=== PATIENT | female | born 1935 | race Caucasian/White ===

== ENCOUNTER → 2017-05-12 | Outpatient (CLI) | payer MEDICARE, BC ==
--- NOTE | 2017-05-13 08:32 | MM ---
Reason for exam: screening (asymptomatic). Last mammogram was performed 2 years and 10 months ago. History: Patient is postmenopausal. Family history of breast cancer in sister at age 65. Physical Findings: A clinical breast exam by your physician is recommended on an annual basis and results should be correlated with mammographic findings. MG Screening Mammo w CAD Bilateral CC and MLO view(s) were taken. Prior study comparison: July 21, 2014, bilateral MG screening mammo w CAD. November 06, 2011, bilateral digital screening mammo w/CAD. The breast tissue is heterogeneously dense. This may lower the sensitivity of mammography. Focal asymmetry upper outer right breast 2.4cm from nipple. This finding is changed when compared with previous exams. ASSESSMENT: Incomplete: need additional imaging evaluation, BI-RAD 0 RECOMMENDATION: Special view mammogram of the right breast. If lesion persists on supplemental views, image directed ultrasound is recommended. [facility] will attempt to contact patient to return for supplemental views and ultrasound if indicated.
== END | disposition home or self-care (01) ==
LOC: RADMAMWWP 09:33
PROVIDERS: ATTEND Family Medicine
DX: Z12.31 Encounter for screening mammogram for malignant neoplasm of breast (principal)

== ENCOUNTER → 2017-05-15 | Outpatient (CLI) | payer MEDICARE, BC ==
--- NOTE | 2017-05-15 11:50 | MM ---
Reason for exam: additional evaluation requested from abnormal screening. Last mammogram was performed less than 1 month ago. History: Patient is postmenopausal. Family history of breast cancer in sister at age 65. Physical Findings: Nurse Summary: 1.5cm nodule in the left breast at 2 o'clock (nurse whitney). MG 3D Work Up W/Cad RT CC, MLO, ML, spot compression MLO, and spot compression CC view(s) were taken of the right breast. Prior study comparison: May 12, 2017, bilateral MG screening mammo w CAD. July 21, 2014, bilateral MG screening mammo w CAD. November 06, 2011, bilateral digital screening mammo w/CAD. The breast tissue is heterogeneously dense. This may lower the sensitivity of mammography. Dense tissue are present anteriorly. On spot 3D images no underlying mass or architectural distortion is seen. Precautionary 6 month follow up recommended. Recommend ultrasound for the nurse detected palpable area on the left. These results were verbally communicated with the patient and result sheet given to the patient on 05/15/17. ASSESSMENT: Incomplete: need additional imaging evaluation, BI-RAD 0 RECOMMENDATION: Ultrasound. (targeted to palpable) MTDD
--- NOTE | 2017-05-15 11:52 | USB ---
Reason for exam: additional evaluation requested from abnormal screening. History: Patient is postmenopausal. Family history of breast cancer in sister at age 65. US Breast Workup Limited LT Left breast ultrasound demonstrates no cystic or solid lesion seen greater than 0.50cm. Scanned from 12-3 o'clock with particular attention to the 2 o'clock nurse palpated site. These results were verbally communicated with the patient and result sheet given to the patient on 05/15/17. ASSESSMENT: Probably benign, BI-RAD 3 RECOMMENDATION: Follow-up diagnostic mammogram in 6 months. (right breast)
== END ==
LOC: RADMAMWWP 09:31
PROVIDERS: ATTEND Family Medicine
DX: R92.8 Other abnormal and inconclusive findings on diagnostic imaging of breast (principal)
CPT/HCPCS: 76642; G0206; G0279

== ENCOUNTER → 2019-11-19 | Outpatient (CLI) | payer MEDICARE, BC ==
--- NOTE | 2019-11-22 13:08 | MM ---
Reason for exam: screening (asymptomatic). Last mammogram was performed 2 years and 6 months ago. History: Patient is postmenopausal. Family history of breast cancer in sister at age 65. Physical Findings: A clinical breast exam by your physician is recommended on an annual basis and results should be correlated with mammographic findings. MG Screening Mammo w CAD Bilateral CC and MLO view(s) were taken. Prior study comparison: May 15, 2017, right breast MG 3d work up w/cad RT. May 12, 2017, bilateral MG screening mammo w CAD. The breast tissue is heterogeneously dense. This may lower the sensitivity of mammography. Stable benign calcifications. There is no discrete abnormality. No significant changes when compared with prior studies. ASSESSMENT: Benign, BI-RAD 2 RECOMMENDATION: Routine screening mammogram of both breasts in 1 year.
== END | disposition home or self-care (01) ==
LOC: RADMAMWWP 10:27
PROVIDERS: ATTEND Family Medicine
DX: Z12.31 Encounter for screening mammogram for malignant neoplasm of breast (principal); Z80.3 Family history of malignant neoplasm of breast
CPT/HCPCS: 77067

== ENCOUNTER 2020-02-13 10:28 | Inpatient (IN) | payer MEDICARE, BC ==
[2020-02-13] MEDS ORDERED: SODIUM CHLORIDE 0.9% 500 ML 500 ML IV STA (11:02)
--- NOTE | 2020-02-13 11:08 | ED ---
General Adult HPI - General Chief complaint: Nausea/Vomiting/Diarrhea Stated complaint: Vomiting Time Seen by Provider: 02/13/20 10:29 Source: patient, EMS, RN notes reviewed Mode of arrival: EMS Limitations: no limitations - History of Present Illness Initial comments: 84-year-old female with a past medical history of diabetes, hypertension presents to the emergency department for a chief complaint of near syncopal episode. Patient states she woke up and just did not feel well overall. States she was very sweaty. She did not have any associated chest pain or shortness of breath. Patient thought she needed to have a bowel movement so sat down on the toilet and felt like she was going to pass out. Patient states she then got up and went into her bedroom where she vomited 3-4 times. She did not lose consciousness. Patient's had a stress test about 6 years ago which was normal. She has not had any cardiac evaluation since that time. Patient did not fall. She did not hit her head. she is stating she feels much better at this time. P erasmo has no other complaints at this time including shortness of breath, chest pain, abdominal pain, nausea or vomiting, headache, or visual changes. - Related Data Allergies Allergy/AdvReac Type Severity Reaction Status Date / Time No Known Allergies Allergy Verified 02/13/20 10:36 Review of Systems ROS Statement: Those systems with pertinent positive or pertinent negative responses have been documented in the HPI. ROS Other: All systems not noted in ROS Statement are negative. Past Medical History Past Medical History: Diabetes Mellitus, Hypertension History of Any Multi-Drug Resistant Organisms: None Reported Past Surgical History: Cholecystectomy, Hysterectomy Past Psychological History: No Psychological Hx Reported Smoking Status: Never smoker Past Alcohol Use History: None Reported Past Drug Use History: None Reported General Exam Limitations: no limitations General appearance: alert, in no apparent distress Head exam: Present: atraumatic, normocephalic, normal inspection Eye exam: Present: normal appearance, PERRL, EOMI. Absent: scleral icterus, conjunctival injection, periorbital swelling ENT exam: Present: normal exam, mucous membranes moist Neck exam: Present: normal inspection, full ROM. Absent: tenderness, meningismus, lymphadenopathy Respiratory exam: Present: normal lung sounds bilaterally. Absent: respiratory distress, wheezes, rales, rhonchi, stridor Cardiovascular Exam: Present: regular rate, normal rhythm, normal heart sounds. Absent: systolic murmur, diastolic murmur, rubs, gallop, clicks GI/Abdominal exam: Present: soft, normal bowel sounds. Absent: distended, tenderness, guarding, rebound, rigid Neurological exam: Present: alert, oriented X3, CN II-XII intact Psychiatric exam: Present: normal affect, normal mood Course Vital Signs 02/13/20 02/13/20 02/13/20 10:31 11:00 12:00 Temperature 98.4 F Pulse Rate 87 86 84 Respiratory 18 18 16 Rate Blood Pressure 120/70 140/57 O2 Sat by Pulse 97 98 99 Oximetry 02/13/20 13:00 Temperature Pulse Rate 82 Respiratory 18 Rate Blood Pressure 129/64 O2 Sat by Pulse 100 Oximetry EKG Findings - EKG Comments: EKG Findings:: Sinus rhythm, ventricular rate 83, ME Interval 240, QTC 474 Medical Decision Making - Medical Decision Making X-ray of the chest shows no acute intrathoracic disease. HPI and physical exam as documented. Vitals are stable. CBC CMP unremarkable. There is evidence or hyperglycemia although patient is diabetic. Also some evidence of dehydration, patient was given fluids. Troponin negative. Patient has not had a cardiac workup in several years. Pt will be admitted for cardiology consultation. - Lab Data Result diagrams: 02/13/20 12:01 02/13/20 12:01 Lab Results 02/13/20 02/13/20 02/13/20 Range/Units 11:38 12:01 12:01 WBC 7.7 (3.8-10.6) k/uL RBC 3.73 L (3.80-5.40) m/uL Hgb 11.1 L (11.4-16.0) gm/dL Hct 35.1 (34.0-46.0) % MCV 94.2 (80.0-100.0) fL MCH 29.7 (25.0-35.0) pg MCHC 31.5 (31.0-37.0) g/dL RDW 14.3 (11.5-15.5) % Plt Count 297 (150-450) k/uL Neutrophils % 75 % Lymphocytes % 17 % Monocytes % 5 % Eosinophils % 1 % Basophils % 0 % Neutrophils # 5.8 (1.3-7.7) k/uL Lymphocytes # 1.3 (1.0-4.8) k/uL Monocytes # 0.4 (0-1.0) k/uL Eosinophils # 0.1 (0-0.7) k/uL Basophils # 0.0 (0-0.2) k/uL PT 10.9 (9.0-12.0) sec INR 1.1 (<1.2) APTT 20.8 L (22.0-30.0) sec Sodium (137-145) mmol/L Potassium (3.5-5.1) mmol/L Chloride (98-107) mmol/L Carbon Dioxide (22-30) mmol/L Anion Gap mmol/L BUN (7-17) mg/dL Creatinine (0.52-1.04) mg/dL Est GFR (CKD-EPI)AfAm (>60 ml/min/1.73 sqM) Est GFR (CKD-EPI)NonAf (>60 ml/min/1.73 sqM) Glucose (74-99) mg/dL POC Glucose (mg/dL) 251 H (75-99) mg/dL POC Glu Olericulturist ID Bowling, Dinah Calcium (8.4-10.2) mg/dL Magnesium (1.6-2.3) mg/dL Total Bilirubin (0.2-1.3) mg/dL AST (14-36) U/L ALT (4-34) U/L Alkaline Phosphatase (38-126) U/L Troponin I (0.000-0.034) ng/mL Total Protein (6.3-8.2) g/dL Albumin (3.5-5.0) g/dL 02/13/20 02/13/20 Range/Units 12:01 12:01 WBC (3.8-10.6) k/uL RBC (3.80-5.40) m/uL Hgb (11.4-16.0) gm/dL Hct (34.0-46.0) % MCV (80.0-100.0) fL MCH (25.0-35.0) pg MCHC (31.0-37.0) g/dL RDW (11.5-15.5) % Plt Count (150-450) k/uL Neutrophils % % Lymphocytes % % Monocytes % % Eosinophils % % Basophils % % Neutrophils # (1.3-7.7) k/uL Lymphocytes # (1.0-4.8) k/uL Monocytes # (0-1.0) k/uL Eosinophils # (0-0.7) k/uL Basophils # (0-0.2) k/uL PT (9.0-12.0) sec INR (<1.2) APTT (22.0-30.0) sec Sodium 136 L (137-145) mmol/L Potassium 4.8 (3.5-5.1) mmol/L Chloride 100 (98-107) mmol/L Carbon Dioxide 26 (22-30) mmol/L Anion Gap 10 mmol/L BUN 47 H (7-17) mg/dL Creatinine 0.99 (0.52-1.04) mg/dL Est GFR (CKD-EPI)AfAm 61 (>60 ml/min/1.73 sqM) Est GFR (CKD-EPI)NonAf 53 (>60 ml/min/1.73 sqM) Glucose 228 H (74-99) mg/dL POC Glucose (mg/dL) (75-99) mg/dL POC Glu Olericulturist ID Calcium 9.8 (8.4-10.2) mg/dL Magnesium 1.8 (1.6-2.3) mg/dL Total Bilirubin 0.2 (0.2-1.3) mg/dL AST 19 (14-36) U/L ALT 16 (4-34) U/L Alkaline Phosphatase 47 (38-126) U/L Troponin I <0.012 (0.000-0.034) ng/mL Total Protein 6.7 (6.3-8.2) g/dL Albumin 4.2 (3.5-5.0) g/dL Disposition Clinical Impression: Near syncope, Hyperglycemia Disposition: ADMITTED IP TO THIS HOSP Condition: Fair Is patient prescribed a controlled substance at d/c from ED?: No Referrals: Janelle Morales DO [Primary Care Provider] - 1-2 days Time of Disposition: 13:30
[2020-02-13 11:39] LABS: Glucose,Whole Blood 251 mg/dL (75-99)
--- NOTE | 2020-02-13 12:19 | XR ---
EXAMINATION TYPE: XR chest 2V DATE OF EXAM: 02/13/2020 HISTORY: syncope. REFERENCE: NONE. FINDINGS: The lungs are clear. Pleural space are clear. The heart is not enlarged. IMPRESSION: NO ACTIVE INTRATHORACIC DISEASE.
[2020-02-13 12:21] LABS: Basophils % (A) 0 %; Eosinophils # (A) 0.1 k/uL (0-0.7); Eosinophils % (A) 1 %; HCT 35.1 % (34.0-46.0); HGB 11.1 gm/dL (11.4-16.0); Lymphocytes # (A) 1.3 k/uL (1.0-4.8); Lymphocytes % (A) 17 %; MCH 29.7 pg (25.0-35.0); MCHC 31.5 g/dL (31.0-37.0); MCV 94.2 fL (80.0-100.0); Monocytes # (A) 0.4 k/uL (0-1.0); Monocytes % (A) 5 %; Neutrophils # (A) 5.8 k/uL (1.3-7.7); Neutrophils % (A) 75 %; Platelet Count 297 k/uL (150-450); RBC 3.73 m/uL (3.80-5.40); RDW 14.3 % (11.5-15.5); WBC 7.7 k/uL (3.8-10.6)
[2020-02-13 12:31] LABS: Albumin 4.2 g/dL (3.5-5.0); Calcium 9.8 mg/dL (8.4-10.2); Magnesium 1.8 mg/dL (1.6-2.3); Potassium 4.8 mmol/L (3.5-5.1); Total Bilirubin 0.2 mg/dL (0.2-1.3); Total Protein 6.7 g/dL (6.3-8.2)
[2020-02-13 12:41] LABS: INR 1.1 (<1.2); Prothrombin Time 10.9 sec (9.0-12.0)
[2020-02-13 12:45] LABS: Partial Thromboplastin Time 20.8 sec (22.0-30.0)
[2020-02-13] MEDS ORDERED: NALOXONE 0.4 MG/ML 1 ML VIAL IV PRN (13:24)
--- NOTE | 2020-02-13 18:54 | P.HPIM ---
History of Present Illness H&P Date: 02/13/20 Chief Complaint: Nausea/vomiting/diarrhea 84-year-old female with a past medical history of diabetes, hypertension presents to the emergency department for a chief complaint of near syncopal episode. Patient states she woke up and just did not feel well overall. States she was very sweaty. She did not have any associated chest pain or shortness of breath. Patient thought she needed to have a bowel movement so sat down on the toilet and felt like she was going to pass out. Patient states she then got up and went into her bedroom where she vomited 3-4 times. She did not lose consciousness. Patient's had a stress test about 6 years ago which was normal. She has not had any cardiac evaluation since that time. Patient did not fall. She did not hit her head. she is stating she feels much better at this time. Patient has no other complaints at this time including shortness of breath, chest pain, abdominal pain, nausea or vomiting, headache, or visual changes. Workup in ED was significant for mild renal injury and hyperglycemia; patient was treated with IV fluid hydration and is admitted to the hospital for further workup of syncope Review of Systems REVIEW OF SYSTEMS: CONSTITUTIONAL: No fever, no malaise, no fatigue. HEENT: No recent visual problems or hearing problems. Denied any sore throat. CARDIOVASCULAR: No chest pain, orthopnea, PND, no palpitations, no syncope. PULMONARY: No shortness of breath, no cough, no hemoptysis. GASTROINTESTINAL: No diarrhea, no nausea, no vomiting, no abdominal pain. NEUROLOGICAL: No headaches, no weakness, no numbness. HEMATOLOGICAL: Denies any bleeding or petechiae. GENITOURINARY: Denies any burning micturition, frequency, or urgency. MUSCULOSKELETAL/RHEUMATOLOGICAL: Denies any joint pain, swelling, or any muscle pain. ENDOCRINE: Denies any polyuria or polydipsia. The rest of the 14-point review of systems is negative. Past Medical History Past Medical History: Diabetes Mellitus, Hypertension History of Any Multi-Drug Resistant Organisms: None Reported Past Surgical History: Cholecystectomy, Hysterectomy Past Psychological History: No Psychological Hx Reported Smoking Status: Never smoker Past Alcohol Use History: None Reported Past Drug Use History: None Reported - Past Family History Sister(s) Family Medical History: Cancer Medications and Allergies Home Medications Medication Instructions Recorded Confirmed Type Aspirin EC [Ecotrin Low Dose] 81 mg PO DAILY 02/13/20 02/13/20 History Cholecalciferol [Vitamin D3 (25 1,000 unit PO DAILY 02/13/20 02/13/20 History Mcg = 1000 Iu)] Cinnamon Bark [Cinnamon] 1,000 mg PO DAILY 02/13/20 02/13/20 History Cranberry Fruit Concentrate [Azo 250 mg PO DAILY@1200 02/13/20 02/13/20 History Cranberry] Cyanocobalamin (Vitamin B-12) 1,000 mcg PO DAILY 02/13/20 02/13/20 History [Vitamin B-12] Glimepiride [Amaryl] 4 mg PO BID 02/13/20 02/13/20 History Lisinopril-Hctz 10-12.5 mg 1 tab PO DAILY 02/13/20 02/13/20 History [Zestoretic 10-12.5] [place]-3 Fatty Acids/Fish Oil [Fish 1 cap PO DAILY 02/13/20 02/13/20 History Oil 1,000 mg Softgel] Pioglitazone [Actos] 45 mg PO DAILY@1200 02/13/20 02/13/20 History Simvastatin 20 mg PO DAILY 02/13/20 02/13/20 History metFORMIN HCL 1,000 mg PO BID 02/13/20 02/13/20 History Allergies Allergy/AdvReac Type Severity Reaction Status Date / Time No Known Allergies Allergy Verified 02/13/20 14:51 Physical Exam Vitals: Vital Signs Temp Pulse Resp BP Pulse Ox 02/13/20 13:00 82 18 129/64 100 02/13/20 12:00 84 16 140/57 99 02/13/20 11:00 86 18 120/70 98 02/13/20 10:31 98.4 F 87 18 97 Intake and Output 02/13/20 02/13/20 02/13/20 06:59 14:59 22:59 Other: Weight 93.894 kg General appearance: alert, in no apparent distress Head exam: Present: atraumatic, normocephalic, normal inspection Eye exam: Present: normal appearance, PERRL, EOMI. Absent: scleral icterus, conjunctival injection, periorbital swelling ENT exam: Present: normal exam, mucous membranes moist Neck exam: Present: normal inspection, full ROM. Absent: tenderness, meningismus, lymphadenopathy Respiratory exam: Present: normal lung sounds bilaterally. Absent: respiratory distress, wheezes, rales, rhonchi, stridor Cardiovascular Exam: Present: regular rate, normal rhythm, normal heart sounds. Absent: systolic murmur, diastolic murmur, rubs, gallop, clicks GI/Abdominal exam: Present: soft, normal bowel sounds. Absent: distended, tenderness, guarding, rebound, rigid Neurological exam: Present: alert, oriented X3, CN II-XII intact Psychiatric exam: Present: normal affect, normal mood Results CBC & Chem 7: 02/13/20 12:01 02/13/20 12:01 Labs: Abnormal Lab Results - Last 24 Hours (Table) 02/13/20 02/13/20 02/13/20 Range/Units 11:38 12:01 12:01 RBC 3.73 L (3.80-5.40) m/uL Hgb 11.1 L (11.4-16.0) gm/dL APTT 20.8 L (22.0-30.0) sec Sodium (137-145) mmol/L BUN (7-17) mg/dL Glucose (74-99) mg/dL POC Glucose (mg/dL) 251 H (75-99) mg/dL 02/13/20 Range/Units 12:01 RBC (3.80-5.40) m/uL Hgb (11.4-16.0) gm/dL APTT (22.0-30.0) sec Sodium 136 L (137-145) mmol/L BUN 47 H (7-17) mg/dL Glucose 228 H (74-99) mg/dL POC Glucose (mg/dL) (75-99) mg/dL Assessment and Plan Assessment: 1. Near syncope - We will monitor EKG and trend troponin every 43; consult cardiology for further recommendations on syncope workup 2. Mild renal injury/dehydration; slow IV fluid hydration with normal saline at a rate of 75 mL an hour; we will monitor renal function and electrolytes and make adjustments as needed 3. Intractable nausea vomiting and diarrhea/ suspected covert 19 infection; patient remains in droplet and contact isolation; symptomatic treatment of nausea and vomiting; slow IV fluid hydration with normal saline; we will start patient on clear liquid diet and advance as tolerated 4. Hyperglycemia/uncontrolled diabetes mellitus; patient takes Amaryl, Actos and metformin at home; we will hold off on oral hypoglycemic agents; we will monitor Accu-Cheks every before meals and at bedtime with insulin sliding scale 5. Hypertension; continue with home dose of lisinopril/hydrochlorothiazide; we will monitor renal function closely and hold medication if renal function worsens 6. Hyperlipidemia; simvastatin 40 mg by mouth daily at bedtime DVT prophylaxis; SCDs/subcu heparin CODE STATUS; full code
[2020-02-13 21:04] LABS: Glucose,Whole Blood 150 mg/dL (75-99)
[2020-02-14] MEDS: INSULIN ASPART (NovoLOG) 100 UNIT/ML VIAL SQ SCH ×5 (01:14→20:45)
[2020-02-14] MEDS: SODIUM CHLORIDE 0.9% 1,000 ML IV SCH ×3 (02:19→23:23)
[2020-02-14 06:44] LABS: Glucose,Whole Blood 170 mg/dL (75-99)
[2020-02-14] MEDS: ATORVASTATIN 20 MG TAB PO SCH (08:37)
[2020-02-14] MEDS: ASPIRIN 81 MG PO SCH (08:37)
[2020-02-14] MEDS: LISINOPRIL-HCTZ 10-12.5 MG 1 EACH TAB PO SCH (08:39)
[2020-02-14 08:51] LABS: Calcium 9.2 mg/dL (8.4-10.2); Potassium 4.3 mmol/L (3.5-5.1)
[2020-02-14 08:53] LABS: Basophils % (A) 1 %; Eosinophils # (A) 0.1 k/uL (0-0.7); Eosinophils % (A) 2 %; HCT 28.5 % (34.0-46.0); Hypochromasia Slight; Lymphocytes % (A) 33 %; MCH 29.3 pg (25.0-35.0); MCV 94.5 fL (80.0-100.0); Mean Platelet Volume 7.6; Monocytes # (A) 0.7 k/uL (0-1.0); Monocytes % (A) 11 %; Neutrophils # (A) 3.1 k/uL (1.3-7.7); Neutrophils % (A) 51 %; Platelet Count 262 k/uL (150-450); RBC 3.01 m/uL (3.80-5.40); RDW 14.1 % (11.5-15.5); WBC 6.1 k/uL (3.8-10.6)
[2020-02-14 08:59] LABS: HGB 8.8 gm/dL (11.4-16.0)
--- NOTE | 2020-02-14 09:17 | P.CRDCN ---
History of Present Illness History of present illness: HISTORY OF PRESENTING ILLNESS This is a pleasant 84-year-old female past medical history significant for hypertension and diabetes mellitus. She denies prior history of coronary a rtery disease and does not follow regularly with long term care administrator. We have been asked to see in consultation for near syncope. She states she woke up in the night and felt she had to use the restroom. She got up and walked to the bathroom and sat on the toilet and attempted to have a bowel movement. She then started feeling acutely lightheaded, diaphoretic and vomited. She did not pass out or have loss of consciousness. She had no chest pain, shortness of breath or palpitations throughout the course of this episode. EKG on arrival revealed sinus mechanism, first-degree AV block, left anterior fascicular block and right bundle branch block. Telemetry tracings reviewed extensively reveal evidence of second-degree Wenckebach phenomenon. This occurred around 2 AM while she was sleeping. She was asymptomatic at the time. Chest x-ray is negative for an acute cardiopulmonary process. Laboratory data reviewed, WBC 6.1, hemoglobin 8.8 this morning down from 11.1 yesterday, platelets 262, sodium 137, potassium 4.3, creatinine 0.95, magnesium 1.8, cardiac enzymes negative 3. Current daily cardiac medications include aspirin 81 mg daily, simvastatin 20 mg daily and lisinopril 10/12.5 mg daily. According to the patient she underwent a stress test at her primary care physician's office approximately 6 years ago that was unremarkable. REVIEW OF SYSTEMS At the time of my exam: CONSTITUTIONAL: Denies fever or chills. CARDIOVASCULAR: Denies chest pain, shortness of breath, orthopnea, PND or palpitations. RESPIRATORY: Denies cough. GASTROINTESTINAL: Denies abdominal pain, diarrhea, constipation, nausea or vomiting. MUSCULOSKELETAL: Denies myalgias. NEUROLOGIC: Denies numbness, tingling or weakness. ENDOCRINE: Denies fatigue, weight change, polydipsia or polyurina. GENITOURINARY: Denies burning, hematuria or urgency with micturation. HEMATOLOGIC: Denies history of anemia or bleeding. PHYSICAL EXAMINATION Blood pressure 106/67 heart rate 72 afebrile and maintaining oxygen saturation on room air. CONSTITUTIONAL: No apparent distress. HEENT: Head is normocephalic. Pupils are equal, round. Sclerae anicteric. Mucous membranes of the mouth are moist. No JVD. No carotid bruit. CHEST EXAMINATION: Lungs are clear to auscultation. No chest wall tenderness is noted on palpation or with deep breathing. HEART EXAMINATION: Regular rate and rhythm. S1, S2 heard. No murmurs, gallops or rub. ABDOMEN: Soft, nontender. Positive bowel sounds. EXTREMITIES: 2+ peripheral pulses, no lower extremity edema and no calf tenderness. NEUROLOGIC EXAMINATION: Patient is awake, alert and oriented x3. 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 Discussed with the nurse having her get up and ambulate this morning while telemetry ongoing. We will review those strips. Obtain 2D echocardiogram and doppler study to assess cardiac structure and function. Check TSH and free T4. Avoid all rate lowering agents. Check stool for occult blood given drop in hemoglobin. Thank you kindly for this consultation. Nurse Practitioner note has been reviewed, I agree with a documented findings and plan of care. Patient was seen and examined. Past Medical History Past Medical History: Diabetes Mellitus, Hypertension History of Any Multi-Drug Resistant Organisms: None Reported Past Surgical History: Cholecystectomy, Hysterectomy Past Anesthesia/Blood Transfusion Reactions: No Reported Reaction Past Psychological History: No Psychological Hx Reported Smoking Status: Never smoker Past Alcohol Use History: None Reported Past Drug Use History: None Reported - Past Family History Sister(s) Family Medical History: Cancer Medications and Allergies Home Medications Medication Instructions Recorded Confirmed Type Aspirin EC [Ecotrin Low Dose] 81 mg PO DAILY 02/13/20 02/13/20 History Biotin 5 mg PO DAILY 02/13/20 02/13/20 History Cholecalciferol [Vitamin D3 (25 1,000 unit PO DAILY 02/13/20 02/13/20 History Mcg = 1000 Iu)] Cinnamon Bark [Cinnamon] 1,000 mg PO DAILY 02/13/20 02/13/20 History Cranberry Fruit Concentrate [Azo 250 mg PO DAILY@1200 02/13/20 02/13/20 History Cranberry] Cyanocobalamin (Vitamin B-12) 1,000 mcg PO DAILY 02/13/20 02/13/20 History [Vitamin B-12] Glimepiride [Amaryl] 4 mg PO BID 02/13/20 02/13/20 History Lisinopril-Hctz 10-12.5 mg 1 tab PO DAILY 02/13/20 02/13/20 History [Zestoretic 10-12.5] Magnesium 250 mg PO DAILY 02/13/20 02/13/20 History Msm 1000mg 1 cap PO DAILY 02/13/20 02/13/20 History [place]-3 Fatty Acids/Fish Oil [Fish 1 cap PO DAILY 02/13/20 02/13/20 History Oil 1,000 mg Softgel] Pioglitazone [Actos] 45 mg PO DAILY@1200 02/13/20 02/13/20 History Simvastatin 20 mg PO DAILY 02/13/20 02/13/20 History Ubidecarenone [Co Q-10] 400 mg PO DAILY 02/13/20 02/13/20 History metFORMIN HCL 1,000 mg PO BID 02/13/20 02/13/20 History Allergies Allergy/AdvReac Type Severity Reaction Status Date / Time No Known Allergies Allergy Verified 02/13/20 14:51 Physical Exam Vitals: Vital Signs Temp Pulse Pulse Resp BP BP Pulse Ox 02/14/20 07:00 98.5 F 72 17 106/67 96 02/14/20 02:20 98.6 F 72 110/64 97 02/13/20 19:00 98.5 F 82 18 120/73 96 02/13/20 18:27 14 02/13/20 18:26 78 14 138/59 96 02/13/20 16:37 79 18 115/59 97 02/13/20 13:00 82 18 129/64 100 02/13/20 12:00 84 16 140/57 99 02/13/20 11:00 86 18 120/70 98 02/13/20 10:31 98.4 F 87 18 97 Intake and Output 02/13/20 02/14/20 02/14/20 22:59 06:59 14:59 Intake Total 300 490 Balance 300 490 Intake: Oral 300 490 Other: # Voids 2 2 Weight 93.894 kg Results 02/14/20 07:28 02/14/20 07:28 Cardiac Enzymes 02/13/20 02/13/20 02/13/20 Range/Units 12:01 12:01 18:09 AST 19 (14-36) U/L Troponin I <0.012 <0.012 (0.000-0.034) ng/mL 02/13/20 Range/Units 23:15 AST (14-36) U/L Troponin I <0.012 (0.000-0.034) ng/mL Coagulation 02/13/20 Range/Units 12:01 PT 10.9 (9.0-12.0) sec APTT 20.8 L (22.0-30.0) sec CBC 02/13/20 Range/Units 12:01 WBC 7.7 (3.8-10.6) k/uL RBC 3.73 L (3.80-5.40) m/uL Hgb 11.1 L (11.4-16.0) gm/dL Hct 35.1 (34.0-46.0) % Plt Count 297 (150-450) k/uL Comprehensive Metabolic Panel 02/13/20 Range/Units 12:01 Sodium 136 L (137-145) mmol/L Potassium 4.8 (3.5-5.1) mmol/L Chloride 100 (98-107) mmol/L Carbon Dioxide 26 (22-30) mmol/L BUN 47 H (7-17) mg/dL Creatinine 0.99 (0.52-1.04) mg/dL Glucose 228 H (74-99) mg/dL Calcium 9.8 (8.4-10.2) mg/dL AST 19 (14-36) U/L ALT 16 (4-34) U/L Alkaline Phosphatase 47 (38-126) U/L Total Protein 6.7 (6.3-8.2) g/dL Albumin 4.2 (3.5-5.0) g/dL Current Medications Generic Name Dose Route Start Last Admin Trade Name Freq PRN Reason Stop Dose Admin Aspirin 81 mg 02/14/20 09:00 02/14/20 08:37 Aspirin PO 81 mg DAILY NADEEM Administration Atorvastatin Calcium 20 mg 02/14/20 09:00 02/14/20 08:37 Lipitor PO 20 mg DAILY NADEEM Administration Lisinopril/HCTZ 1 each 02/14/20 09:00 02/14/20 08:39 Zestoretic 10-12.5 PO 1 each DAILY NADEEM Administration Sodium Chloride 1,000 mls @ 20 mls/hr 02/13/20 13:30 02/14/20 03:26 Saline 0.9% IV Not Given .Q24H NADEEM Sodium Chloride 1,000 mls @ 75 mls/hr 02/13/20 19:00 02/14/20 02:19 Saline 0.9% IV 75 mls/hr .[id number] NADEEM Administration Insulin Aspart 0 unit 02/13/20 21:00 02/14/20 08:37 Novolog SQ 02/20/20 21:01 2 unit ACHS NADEEM Administration Protocol Naloxone HCl 0.2 mg 02/13/20 13:24 Narcan IV Q2M PRN Opioid Reversal Intake and Output 02/13/20 02/14/20 02/14/20 22:59 06:59 14:59 Intake Total 300 490 Balance 300 490 Intake: Oral 300 490 Other: # Voids 2 2 Weight 93.894 kg 02/13/20 12:01 02/13/20 12:01
[2020-02-14 11:22] LABS: Glucose,Whole Blood 193 mg/dL (75-99)
--- NOTE | 2020-02-14 12:00 | ECHOF ---
Referral Reason: MEASUREMENTS -------- HEIGHT: 165.1 cm WEIGHT: 93.9 kg BP: 106/67 RVIDd: 3.0 cm (< 3.3) IVSd: 1.6 cm (0.6 - 1.1) LVIDd: 3.8 cm (3.9 - 5.3) LVPWd: 1.4 cm (0.6 - 1.1) IVSs: 1.8 cm LVIDs: 2.5 cm LVPWs: 1.8 cm Ao Diam: 3.0 cm (2.0 - 3.7) AV Cusp: 2.1 cm (1.5 - 2.6) LA Diam: 2.2 cm (2.7 - 3.8) MV EXCURSION: 9.718 mm (> 18.000) MV EF SLOPE: 40 mm/s (70 - 150) EPSS: 0.7 cm MV E Jaskaran: 0.64 m/s MV DecT: 294 ms MV A Jaskaran: 0.30 m/s MV E/A Ratio: 2.12 RAP: 5.00 mmHg RVSP: 8.86 mmHg FINDINGS -------- Sinus rhythm. This was a technically difficult study with suboptimal views. The left ventricular size is normal. There is moderate concentric left ventricular hypertrophy. O verall left ventricular systolic function is normal with, an EF between 55 - 60 %. The right ventricle is normal in size. The left atrial size is normal. The right atrial size is normal. 5.0mg of Lumason was utilized for enhancement of images IAS not well Visualized. The aortic valve is trileaflet and appears structurally normal. The mitral valve is normal. There is trace mitral regurgitation. The tricuspid valve appears structurally normal. Trace tricuspid regurgitation present. Right deidre tricular systolic pressure is normal at < 35 mmHg. The pulmonic valve was not well visualized. The aortic root size is normal. IVC Not well visulized. There is no pericardial effusion. CONCLUSIONS -------- 1. Sinus rhythm. 2. This was a technically difficult study with suboptimal views. 3. The left ventricular size is normal. 4. There is moderate concentric left ventricular hypertrophy. 5. Overall left ventricular systolic function is normal with, an EF between 55 - 60 %. 6. The right ventricle is normal in size. 7. The left atrial size is normal. 8. The right atrial size is normal. 9. 5.0mg of Lumason was utilized for enhancement of images 10. IAS not well Visualized. 11. The aortic valve is trileaflet and appears structurally normal. 12. The mitral valve is normal. 13. There is trace mitral regurgitation. 14. The tricuspid valve appears structurally normal. 15. Trace tricuspid regurgitation present. 16. Right ventricular systolic pressure is normal at < 35 mmHg. 17. The pulmonic valve was not well visualized. 18. The aortic root size is normal. 19. IVC Not well visulized. 20. There is no pericardial effusion. [employer]WORK INSTALLER: Ariane Vitale RDCS
[2020-02-14] MEDS: PANTOPRAZOLE 40 MG TABLET PO SCH (12:54)
--- NOTE | 2020-02-14 15:21 | P.PN ---
Subjective Progress Note Date: 02/14/20 Visit 84-year-old female admitted with near syncope, nausea and vomiting 1, dark emesis, hyperglycemia and multiple other medical issues. Telemetry suggestive of possible pulses, possible wenkybach. Evaluated by cardiology. Echo pending. Patient has been instructed to increase ambulation with further monitoring with exertion. Thyroid panel pending. Hemoglobin down to 8.8, 11.1 on admission. GI consulted. Denies chest pain, palpitations or shortness of breath. Denies lightheadedness, dizziness or focal deficits. Objective - Vital Signs Vital signs: Vital Signs Temp 98.3 F 02/14/20 14:15 Pulse 70 02/14/20 14:15 Resp 16 02/14/20 14:15 BP 96/57 02/14/20 14:15 Pulse Ox 94 L 02/14/20 14:15 Intake & Output 02/13/20 02/14/20 02/14/20 18:59 06:59 18:59 Intake Total 300 1440 Balance 300 1440 Weight 93.894 kg Intake: Intake, IV Titration 600 Amount Sodium Chloride 0.9% 1, 600 000 ml @ 75 mls/hr IV . [id number] NADEEM Rx#:[id number] Oral 300 840 Other: # Voids 2 2 # Bowel Movements 2 - Exam PHYSICAL EXAM: VITAL SIGNS: As above GENERAL: Sitting up in bed, no acute distress HEENT: Conjunctivae normal. eyes normal. NECK: No JVD. No thyroid enlargement. No LNs CARDIOVASCULAR: S1, S2 regular. No murmur RESPIRATION: Breath sounds diminished in the bases. No rhonchi or crackles. No bronchial breathing. ABDOMEN: Soft, nontender . No guarding. no masses palpable. Bowel sounds heard. LEGS: No edema. no swelling PSYCHIATRY: Alert and oriented X3, mood and affect normal. NERVOUS SYSTEM: Cranial N 2-12 grossly normal. Moves all 4 limbs. No focal deficits. Strength and sensation grossly intact. Skin: no rash - Labs CBC & Chem 7: 02/14/20 07:28 02/14/20 07:28 Labs: Abnormal Lab Results - Last 24 Hours (Table) 02/13/20 02/14/20 02/14/20 Range/Units 21:03 06:42 07:28 RBC 3.01 L (3.80-5.40) m/uL Hgb 8.8 L D (11.4-16.0) gm/dL Hct 28.5 L (34.0-46.0) % BUN (7-17) mg/dL Glucose (74-99) mg/dL POC Glucose (mg/dL) 150 H 170 H (75-99) mg/dL 02/14/20 02/14/20 Range/Units 07:28 11:21 RBC (3.80-5.40) m/uL Hgb (11.4-16.0) gm/dL Hct (34.0-46.0) % BUN 38 H (7-17) mg/dL Glucose 151 H (74-99) mg/dL POC Glucose (mg/dL) 193 H (75-99) mg/dL Assessment and Plan Assessment: Near-syncope, suspect vasovagal, plus patient has been under significant stress as her sister Friday from breast cancer. Pauses, second degree AV block;Wenkebach Possible GI bleed, reports dark emesis , possible coffee ground. Anemia, possibly acute Diabetes mellitus Hypertension Obesity, BMI 34.4 Family history of cardiac disease, both mother and brother from heart disease. Plan: Continue on current medication regime ,monitoring and symptomatic treatment. Maintain PPI, GI consulted with recommendations pending. Close monitoring of hemoglobin with repeat labs ordered for a.m. Patient has been instructed to increase ambulation with further cardiac monitoring. Echo pending. Discharge planning in progress for tomorrow. The impression and plan of care has been dictated as directed. : I performed a history and examination of this patient, discussed the same with the dictator. I agree with the dictator's note ,documented as a scribe. Any additional findings or plans will be noted.
[2020-02-14 16:33] LABS: Glucose,Whole Blood 165 mg/dL (75-99)
[2020-02-14 20:20] LABS: Glucose,Whole Blood 182 mg/dL (75-99)
[2020-02-15 07:27] LABS: Basophils % (A) 1 %; Eosinophils # (A) 0.2 k/uL (0-0.7); Eosinophils % (A) 3 %; HGB 8.5 gm/dL (11.4-16.0); Lymphocytes # (A) 1.6 k/uL (1.0-4.8); Lymphocytes % (A) 35 %; MCH 29.4 pg (25.0-35.0); MCHC 31.6 g/dL (31.0-37.0); MCV 92.9 fL (80.0-100.0); Monocytes # (A) 0.3 k/uL (0-1.0); Monocytes % (A) 6 %; Neutrophils # (A) 2.5 k/uL (1.3-7.7); Neutrophils % (A) 53 %; Platelet Count 260 k/uL (150-450); RDW 14.2 % (11.5-15.5); WBC 4.7 k/uL (3.8-10.6)
[2020-02-15 07:53] LABS: Calcium 9.4 mg/dL (8.4-10.2); Potassium 4.2 mmol/L (3.5-5.1)
[2020-02-15 07:59] LABS: Glucose,Whole Blood 212 mg/dL (75-99)
[2020-02-15] MEDS: SODIUM CHLORIDE 0.9% 1,000 ML IV SCH ×4 (08:21→11:30)
[2020-02-15] MEDS: INSULIN ASPART (NovoLOG) 100 UNIT/ML VIAL SQ SCH ×4 (08:31→20:17)
[2020-02-15] MEDS: PANTOPRAZOLE 40 MG TABLET PO SCH (08:32)
[2020-02-15] MEDS: ATORVASTATIN 20 MG TAB PO SCH (08:33)
[2020-02-15] MEDS: LISINOPRIL-HCTZ 10-12.5 MG 1 EACH TAB PO SCH (08:33)
[2020-02-15] MEDS: ASPIRIN 81 MG PO SCH (08:33)
--- NOTE | 2020-02-15 09:29 | P.PN ---
Subjective HISTORY OF PRESENTING ILLNESS This is a pleasant 84-year-old female past medical history significant for hypertension and diabetes mellitus. She denies prior history of coronary artery disease and does not follow regularly with contact lens assistant. She is seen and examined sitting up at the edge of the bed in no acute distress. She denies any further episodes of dizziness or vomiting. Telemetry tracings indicate her rate did improve with ambulation yesterday afternoon. Blood pressure 127/59 heart rate 72 afebrile and maintaining oxygen saturation on room air. Laboratory data reviewed, WBC 4.7, hemoglobin 8.5, platelets 260, sodium 137, potassium 4.2, creatinine 0.97. 2-D echocardiogram reviewed revealed preserved LV systolic function with ejection fraction 55-60%. PHYSICAL EXAMINATION CONSTITUTIONAL: No apparent distress. HEENT: Head is normocephalic. Pupils are equal, round. Sclerae anicteric. Mucous membranes of the mouth are moist. No JVD. No carotid bruit. CHEST EXAMINATION: Lungs are clear to auscultation. No chest wall tenderness is noted on palpation or with deep breathing. HEART EXAMINATION: Regular rate and rhythm. S1, S2 heard. No murmurs, gallops or rub. EXTREMITIES: 2+ peripheral pulses, no lower extremity edema and no calf tenderness. 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 Avoid all rate lowering medications. Recommend outpatient 24-hr holter monitor from the office and then follow up visit with Dr. Nelson in 1-week. Nurse Practitioner note has been reviewed, I agree with a documented findings and plan of care. Patient was seen and examined. Objective - Vital Signs Vital signs: Vital Signs Temp 98.1 F 02/15/20 07:00 Pulse 72 02/15/20 07:00 Resp 16 02/15/20 07:00 BP 127/59 02/15/20 07:00 Pulse Ox 95 02/15/20 07:00 Intake & Output 02/14/20 02/15/20 02/15/20 18:59 06:59 18:59 Intake Total 1900 0 Balance 1900 0 Intake: Intake, IV Titration 600 Amount Sodium Chloride 0.9% 1, 600 000 ml @ 75 mls/hr IV . [id number] NADEEM Rx#:[id number] Oral 1300 0 Other: # Voids 2 2 # Bowel Movements 2 - Labs CBC & Chem 7: 02/15/20 07:07 02/15/20 07:07 Labs: Abnormal Lab Results - Last 24 Hours (Table) 02/14/20 02/14/20 02/14/20 Range/Units 07:28 11:21 16:32 RBC 3.01 L (3.80-5.40) m/uL Hgb 8.8 L D (11.4-16.0) gm/dL Hct 28.5 L (34.0-46.0) % BUN (7-17) mg/dL Glucose (74-99) mg/dL POC Glucose (mg/dL) 193 H 165 H (75-99) mg/dL 02/14/20 02/15/20 02/15/20 Range/Units 20:17 07:07 07:07 RBC 2.90 L (3.80-5.40) m/uL Hgb 8.5 L (11.4-16.0) gm/dL Hct 27.0 L (34.0-46.0) % BUN 23 H (7-17) mg/dL Glucose 186 H (74-99) mg/dL POC Glucose (mg/dL) 182 H (75-99) mg/dL 02/15/20 Range/Units 07:27 RBC (3.80-5.40) m/uL Hgb (11.4-16.0) gm/dL Hct (34.0-46.0) % BUN (7-17) mg/dL Glucose (74-99) mg/dL POC Glucose (mg/dL) 212 H (75-99) mg/dL
[2020-02-15 11:46] LABS: Glucose,Whole Blood 241 mg/dL (75-99)
[2020-02-15 15:09] LABS: Reticulocyte % 2.1 % (0.5-2.0)
--- NOTE | 2020-02-15 15:53 | P.PN ---
Subjective Progress Note Date: 02/15/20 Visit 84-year-old female admitted with near syncope, nausea and vomiting 1, dark emesis, hyperglycemia and multiple other medical issues. Telemetry suggestive of possible pulses, possible wenkybach. Evaluated by cardiology. Echo pending. Patient has been instructed to increase ambulation with further monitoring with exertion. Thyroid panel pending. Hemoglobin down to 8.8, 11.1 on admission. GI consulted. Denies chest pain, palpitations or shortness of breath. Denies lightheadedness, dizziness or focal deficits. 02/15/2020 no further nausea vomiting or diarrhea. Denies chest pain, palpitat ions or shortness of breath. Denies lightheadedness, dizziness or focal deficits. Hemoglobin down to 8.5. Evaluated by GI, scheduled for EGD and colonoscopy tomorrow. 2-D Echo reporting preserved LV function with EF 55-60%. Objective - Vital Signs Vital signs: Vital Signs Temp 98.3 F 02/15/20 14:48 Pulse 65 02/15/20 14:48 Resp 18 02/15/20 14:48 BP 121/60 02/15/20 14:48 Pulse Ox 98 02/15/20 14:48 Intake & Output 02/14/20 02/15/20 02/15/20 18:59 06:59 18:59 Intake Total 1900 0 Balance 1900 0 Intake: Intake, IV Titration 600 Amount Sodium Chloride 0.9% 1, 600 000 ml @ 75 mls/hr IV . [id number] NADEEM Rx#:[id number] Oral 1300 0 Other: # Voids 2 2 1 # Bowel Movements 2 - Exam PHYSICAL EXAM: VITAL SIGNS: As above GENERAL: Sitting up at side of bed, no acute distress HEENT: Conjunctivae normal. eyes normal. NECK: No JVD. No thyroid enlargement. No LNs CARDIOVASCULAR: S1, S2 regular. No murmur RESPIRATION: Breath sounds diminished in the bases. No rhonchi or crackles. No bronchial breathing. ABDOMEN: Soft, nontender . No guarding. no masses palpable. Bowel sounds heard. LEGS: No edema. no swelling PSYCHIATRY: Alert and oriented X3, mood and affect normal. NERVOUS SYSTEM: Cranial N 2-12 grossly normal. Moves all 4 limbs. No focal deficits. Strength and sensation grossly intact. Skin: no rash - Labs CBC & Chem 7: 02/15/20 07:07 02/15/20 07:07 Labs: Abnormal Lab Results - Last 24 Hours (Table) 02/14/20 02/14/20 02/15/20 Range/Units 16:32 20:17 07:07 RBC 2.90 L (3.80-5.40) m/uL Hgb 8.5 L (11.4-16.0) gm/dL Hct 27.0 L (34.0-46.0) % Retic Count (0.5-2.0) % BUN (7-17) mg/dL Glucose (74-99) mg/dL POC Glucose (mg/dL) 165 H 182 H (75-99) mg/dL 02/15/20 02/15/20 02/15/20 Range/Units 07:07 07:07 07:27 RBC (3.80-5.40) m/uL Hgb (11.4-16.0) gm/dL Hct (34.0-46.0) % Retic Count 2.1 H (0.5-2.0) % BUN 23 H (7-17) mg/dL Glucose 186 H (74-99) mg/dL POC Glucose (mg/dL) 212 H (75-99) mg/dL 02/15/20 Range/Units 11:45 RBC (3.80-5.40) m/uL Hgb (11.4-16.0) gm/dL Hct (34.0-46.0) % Retic Count (0.5-2.0) % BUN (7-17) mg/dL Glucose (74-99) mg/dL POC Glucose (mg/dL) 241 H (75-99) mg/dL Assessment and Plan Assessment: Near-syncope, suspect vasovagal, plus patient has been under significant stress as her sister Friday from breast cancer. Pauses, second degree AV block;Wenkebach Possible GI bleed, reports dark emesis , possible coffee ground. Anemia, possibly acute Diabetes mellitus Hypertension Obesity, BMI 34.4 Family history of cardiac disease, both mother and brother from heart disease. Plan: Continue on current medication regime ,monitoring and symptomatic treatment. Nothing by mouth at midnight .scheduled for EGD and colonoscopy tomorrow. Continue on PPI Close monitoring of hemoglobin with repeat labs ordered for a.m. Discharge planning in progress for tomorrow, pending endoscopy results & GI clearance. The impression and plan of care has been dictated as directed. : I performed a history and examination of this patient, discussed the same with the dictator. I agree with the dictator's note ,documented as a scribe. Any additional findings or plans will be noted.
[2020-02-15] MEDS ORDERED: PEG 3350-NA SULF,BICARB,CL/KCL 4,000 ML BOTTLE PO ONE (16:00)
[2020-02-15 16:58] LABS: Glucose,Whole Blood 163 mg/dL (75-99)
[2020-02-15] MEDS ORDERED: BISACODYL 5 MG TABLET.DR PO ONE (18:00)
[2020-02-15 20:05] LABS: Glucose,Whole Blood 210 mg/dL (75-99)
--- NOTE | 2020-02-15 20:29 | P.CONS ---
History of Present Illness - Reason for Consult Consult date: 02/15/20 Normocytic anemia Requesting physician: Lul Epperson - Chief Complaint Near-syncope - History of Present Illness 84-year-old female with a medical history significant for diabetes mellitus and hypertension who presented to the hospital for evaluation of the constellation of symptoms including near-syncope and vomiting. The patient reports a near syncopal episode. The patient's had 1 episode of dark colored vomitus and association with the episode. She denies any prior history of anemia except with her remotely. Denies any NSAID use. She denies any history of peptic ulcer disease. No associated abdominal pain. She denies any bright red blood per rectum but did have a dark bowel movement. She reports a remote history of colonoscopy past which she believes was negative. She denies any unintentional weight loss. Hemoglobin 11.1 on presentation and subsequently fell to 8.8 and 8.5 today with normocytic indices. WBC 4.7, platelet count 210,000, INR 1.1, total bilirubin 0.2, alkaline phosphatase 42, AST 19 and ALT 16. Patient was found to have a second-degree heart block on presentation and is being seen by the cardiology service with 2-D echo reporting preserved ejection fraction 55-60%. Review of Systems REVIEW OF SYSTEMS: CONSTITUTIONAL: Denies any fevers, chills, weight change or fatigue. CARDIOVASCULAR: Denies any chest pain, palpitations high or low blood pressures, did have a near syncopal episode prior to presentation RESPIRATORY: Denies any shortness of breath, hemoptysis or cough. GENITOURINARY: No dysuria or hematuria. MUSCULOSKELETAL: No weakness reported. SKIN: Denies any new rashes or lesions, jaundice or pallor. PSYCHIATRIC: Denies any depression or anxiety. NEUROLOGY: Denies headache, denies any new focal deficits. EARS/NOSE/THROAT: No recent hearing change, congestion, nasal discharge or sore throat. EYES: No pain in eyes, discharge or change in vision. GASTROINTESTINAL: As per HPI. Past Medical History Past Medical History: Diabetes Mellitus, Hypertension History of Any Multi-Drug Resistant Organisms: None Reported Past Surgical History: Cholecystectomy, Hysterectomy Past Anesthesia/Blood Transfusion Reactions: No Reported Reaction Past Psychological History: No Psychological Hx Reported Smoking Status: Never smoker Past Alcohol Use History: None Reported Past Drug Use History: None Reported - Past Family History Sister(s) Family Medical History: Cancer Medications and Allergies Home Medications Medication Instructions Recorded Confirmed Type Aspirin EC [Ecotrin Low Dose] 81 mg PO DAILY 02/13/20 02/13/20 History Biotin 5 mg PO DAILY 02/13/20 02/13/20 History Cholecalciferol [Vitamin D3 (25 1,000 unit PO DAILY 02/13/20 02/13/20 History Mcg = 1000 Iu)] Cinnamon Bark [Cinnamon] 1,000 mg PO DAILY 02/13/20 02/13/20 History Cranberry Fruit Concentrate [Azo 250 mg PO DAILY@1200 02/13/20 02/13/20 History Cranberry] Cyanocobalamin (Vitamin B-12) 1,000 mcg PO DAILY 02/13/20 02/13/20 History [Vitamin B-12] Glimepiride [Amaryl] 4 mg PO BID 02/13/20 02/13/20 History Lisinopril-Hctz 10-12.5 mg 1 tab PO DAILY 02/13/20 02/13/20 History [Zestoretic 10-12.5] Magnesium 250 mg PO DAILY 02/13/20 02/13/20 History Msm 1000mg 1 cap PO DAILY 02/13/20 02/13/20 History Benson-3 Fatty Acids/Fish Oil [Fish 1 cap PO DAILY 02/13/20 02/13/20 History Oil 1,000 mg Softgel] Pioglitazone [Actos] 45 mg PO DAILY@1200 02/13/20 02/13/20 History Simvastatin 20 mg PO DAILY 02/13/20 02/13/20 History Ubidecarenone [Co Q-10] 400 mg PO DAILY 02/13/20 02/13/20 History metFORMIN HCL 1,000 mg PO BID 02/13/20 02/13/20 History Pantoprazole [Protonix] 40 mg PO ANGELO #30 tablet. 02/14/20 Rx Allergies Allergy/AdvReac Type Severity Reaction Status Date / Time No Known Allergies Allergy Verified 02/13/20 14:51 Physical Exam Vitals: Vital Signs Temp Pulse Resp BP Pulse Ox 02/15/20 08:20 16 02/15/20 07:00 98.1 F 72 16 127/59 95 02/14/20 23:37 98.3 F 64 18 94/54 94 L 02/14/20 19:00 98.5 F 70 20 111/59 95 02/14/20 16:00 70 16 02/14/20 14:15 98.3 F 70 16 96/57 94 L Intake and Output 02/14/20 02/15/20 02/15/20 22:59 06:59 14:59 Intake Total 460 0 Balance 460 0 Intake: Oral 460 0 Other: # Voids 2 2 # Bowel Movements 2 On physical examination, patient appears comfortable in no apparent distress. HEAD: Normocephalic, atraumatic. EYES: No scleral icterus. No conjunctival injection. MOUTH: No lesions, tongue midline. NECK: Trachea midline, no gross abnormalities. CHEST: Clear to auscultation with no wheezing or rhonchi appreciated. HEART: S1-S2 appreciated. ABDOMEN: Soft, obese. Bowel sounds are positive. No organomegaly. No guarding or rigidity. EXTREMITIES: No pedal edema. SKIN: No rashes, no jaundice. NEUROLOGIC: Alert and oriented x3. No focal deficits. Results CBC & Chem 7: 02/15/20 07:07 02/15/20 07:07 Labs: Abnormal Lab Results - Last 24 Hours (Table) 02/14/20 02/14/20 02/15/20 Range/Units 16:32 20:17 07:07 RBC 2.90 L (3.80-5.40) m/uL Hgb 8.5 L (11.4-16.0) gm/dL Hct 27.0 L (34.0-46.0) % BUN (7-17) mg/dL Glucose (74-99) mg/dL POC Glucose (mg/dL) 165 H 182 H (75-99) mg/dL 02/15/20 02/15/20 02/15/20 Range/Units 07:07 07:27 11:45 RBC (3.80-5.40) m/uL Hgb (11.4-16.0) gm/dL Hct (34.0-46.0) % BUN 23 H (7-17) mg/dL Glucose 186 H (74-99) mg/dL POC Glucose (mg/dL) 212 H 241 H (75-99) mg/dL Chest x-ray: report reviewed (No active intrathoracic disease on chest x-ray) Assessment and Plan (1) Normocytic anemia Narrative/Plan: 84-year-old female who presented to the hospital with complaints of a near syncope episode and dark emesis. No further episodes of emesis she had reported some dark stool. No bright red blood per rectum and no history of peptic ulcer disease or NSAID use. She denies any abdominal pain. She was found to have a normocytic anemia on presentation. Unknown etiology, we'll plan for endoscopic evaluation to rule out component of GI bleed. Last colonoscopy done remotely and normal per her recollection. Current Visit: Yes Status: Acute Code(s): D64.9 - ANEMIA, UNSPECIFIED SNOMED Code(s): 765051362 Plan: Supportive care Okay for clear liquid diet Continue to monitor CBC and transfuse as needed Anemia evaluation ordered Bowel prep tonight Nothing by mouth after midnight EGD and colonoscopy tomorrow Thank you for allowing us to participate in the care of the patient, we will continue to follow
[2020-02-15] MEDS ORDERED: LACTATED RINGERS 1,000 ML IV SCH (23:15)
[2020-02-15 23:40] LABS: % Iron Saturation 22.42 (12.00-45.00)
[2020-02-15 23:48] LABS: Ferritin 37.9 ng/mL (10.0-291.0); Folate, Serum 10.5 ng/mL
[2020-02-16 06:21] LABS: Basophils % (A) 0 %; Eosinophils # (A) 0.1 k/uL (0-0.7); Eosinophils % (A) 2 %; HCT 27.1 % (34.0-46.0); HGB 8.5 gm/dL (11.4-16.0); Lymphocytes # (A) 1.8 k/uL (1.0-4.8); Lymphocytes % (A) 34 %; MCH 29.2 pg (25.0-35.0); MCHC 31.5 g/dL (31.0-37.0); MCV 92.5 fL (80.0-100.0); Mean Platelet Volume 7.3; Monocytes # (A) 0.5 k/uL (0-1.0); Monocytes % (A) 9 %; Neutrophils # (A) 2.7 k/uL (1.3-7.7); Neutrophils % (A) 52 %; Platelet Count 271 k/uL (150-450); RBC 2.92 m/uL (3.80-5.40); RDW 14.4 % (11.5-15.5); WBC 5.3 k/uL (3.8-10.6)
[2020-02-16] MEDS: PANTOPRAZOLE 40 MG TABLET PO SCH (06:51)
[2020-02-16] MEDS: ATORVASTATIN 20 MG TAB PO SCH (06:51)
[2020-02-16] MEDS: SODIUM CHLORIDE 0.9% 1,000 ML IV SCH ×3 (06:51→12:04)
[2020-02-16] MEDS: ASPIRIN 81 MG PO SCH (06:51)
[2020-02-16 06:52] LABS: Glucose,Whole Blood 200 mg/dL (75-99)
[2020-02-16 07:06] LABS: Calcium 9.5 mg/dL (8.4-10.2)
[2020-02-16] MEDS: LISINOPRIL-HCTZ 10-12.5 MG 1 EACH TAB PO SCH (07:21)
[2020-02-16] MEDS: INSULIN ASPART (NovoLOG) 100 UNIT/ML VIAL SQ SCH ×2 (07:21→12:06)
[2020-02-16 08:04] VITALS: TEMP 98
[2020-02-16] MEDS ORDERED: PROPOFOL 10 MG/ML 20 ML VIAL IV ONE (10:22)
--- NOTE | 2020-02-16 10:23 | P.PN ---
Subjective HISTORY OF PRESENTING ILLNESS This is a pleasant 84-year-old female past medical history significant for hypertension and diabetes mellitus. 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 She is seen and examined resting comfortably in bed in no acute distress. She has had no further symptom of dizziness since admission. She has been seen by GI service secondary vomiting and anemia. She is scheduled to undergo an EGD/colonoscopy today with Dr. Sanchez. Laboraotry data reviewed, WBC 5.3, hgb 8.5, plt 271, sodium 137, potassium 4.0, creatinine 1.1. Echocardiogram reviewed revealed preserved LV systolic function with ejection fraction 55-60%. Currently maintained on aspirin 81 mg daily, atorvastatin 20 mg daily and lisinopril/hctz 10/12.5 mg daily. Telemetry tracing reviewed, there a episodes of blocked PAC's noted with persistent first degree AV block PHYSICAL EXAMINATION Blood pressure 123/65 heart rate 73 afebrile and maintaining oxygen saturation on room air. CONSTITUTIONAL: No apparent distress. HEENT: Head is normocephalic. Pupils are equal, round. Sclerae anicteric. Mucous membranes of the mouth are moist. No JVD. No carotid bruit. CHEST EXAMINATION: Lungs are clear to auscultation. No chest wall tenderness is noted on palpation or with deep breathing. HEART EXAMINATION: Regular rate and rhythm. S1, S2 heard. No murmurs, gallops or rub. EXTREMITIES: 2+ peripheral pulses, no lower extremity edema and no calf tenderness. 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 Avoid all rate lowering medications. Recommend outpatient 24-hr holter monitor from the office and then follow up visit with Dr. Nelson in 1-week. Nurse Practitioner note has been reviewed, I agree with a documented findings and plan of care. Patient was seen and examined. Objective - Vital Signs Vital signs: Vital Signs Temp 98.0 F 02/16/20 06:51 Pulse 73 02/16/20 06:51 Resp 16 02/16/20 06:51 BP 123/65 02/16/20 06:51 Pulse Ox 95 02/16/20 06:51 Intake & Output 02/15/20 02/16/20 02/16/20 18:59 06:59 18:59 Intake Total 2000 Balance 1999 Intake: Oral 1999 Other: Voiding Method Toilet # Voids 1 2 - Labs CBC & Chem 7: 02/16/20 06:05 02/16/20 06:05 Labs: Abnormal Lab Results - Last 24 Hours (Table) 02/15/20 02/15/20 02/15/20 Range/Units 07:07 07:07 11:45 RBC (3.80-5.40) m/uL Hgb (11.4-16.0) gm/dL Hct (34.0-46.0) % Retic Count 2.1 H (0.5-2.0) % BUN (7-17) mg/dL Creatinine (0.52-1.04) mg/dL Glucose (74-99) mg/dL POC Glucose (mg/dL) 241 H (75-99) mg/dL Vitamin B12 1992.0 H (200.0-944.0) pg/mL 02/15/20 02/15/20 02/16/20 Range/Units 16:57 20:03 06:05 RBC 2.92 L (3.80-5.40) m/uL Hgb 8.5 L (11.4-16.0) gm/dL Hct 27.1 L (34.0-46.0) % Retic Count (0.5-2.0) % BUN (7-17) mg/dL Creatinine (0.52-1.04) mg/dL Glucose (74-99) mg/dL POC Glucose (mg/dL) 163 H 210 H (75-99) mg/dL Vitamin B12 (200.0-944.0) pg/mL 02/16/20 02/16/20 Range/Units 06:05 06:49 RBC (3.80-5.40) m/uL Hgb (11.4-16.0) gm/dL Hct (34.0-46.0) % Retic Count (0.5-2.0) % BUN 18 H (7-17) mg/dL Creatinine 1.10 H (0.52-1.04) mg/dL Glucose 175 H (74-99) mg/dL POC Glucose (mg/dL) 200 H (75-99) mg/dL Vitamin B12 (200.0-944.0) pg/mL
[2020-02-16] MEDS ORDERED: SODIUM CHLORIDE 0.9% 500 ML 500 ML IV ONE ×2 (10:29)
--- NOTE | 2020-02-16 10:48 | P.DS ---
Providers Date of admission: 02/15/20 09:25 Expected date of discharge: 02/16/20 Attending physician: Lul Epperson MD Consults: 02/13/20 13:25 Consult Physician Routine Consulting Provider: [facility] Consult Reason/Comments: near syncope Do you want consulting provider notified?: Yes 02/14/20 12:12 Consult Physician Routine Consulting Provider: Jennie Edge Consult Reason/Comments: coffee ground emesis Do you want consulting provider notified?: Yes Primary care physician: Janelle Morales Hospital Course: Final Diagnoses: Near-syncope, suspect vasovagal, plus patient has been under significant stress as her sister Friday from breast cancer. Pauses, second degree AV block;Wenkebach Possible GI bleed, reports dark emesis , possible coffee ground. Anemia, possibly acute Diabetes mellitus Hypertension Obesity, BMI 34.4 Family history of cardiac disease, both mother and brother from heart disease. Hospital course:Visit 84-year-old female admitted with near syncope, nausea and vomiting 1, dark emesis, hyperglycemia and multiple other medical issues. Telemetry suggestive of possible pulses, possible wenkybach. Evaluated by cardiology. Echo pending. Patient has been instructed to increase ambulation with further monitoring with exertion. Thyroid panel pending. Hemoglobin down to 8.8, 11.1 on admission. GI consulted. Denies chest pain, palpitations or shortness of breath. Denies lightheadedness, dizziness or focal deficits. 02/15/2020 no further nausea vomiting or diarrhea. Denies chest pain, palpitations or shortness of breath. Denies lightheadedness, dizziness or focal deficits. Hemoglobin down to 8.5. Evaluated by GI, scheduled for EGD and colonoscopy tomorrow. 2-D Echo reporting preserved LV function with EF 55-60% Significant clinical improvement. No further nausea vomiting or diarrhea. Hemoglobin remained stable at 8.5. Denies chest pain, palpitations or shortness of breath. Denies lightheadedness, dizziness or focal deficits. Scheduled for both EGD and colonoscopy today with GI. Patient will be discharged home today pending endoscopy results, final DC recommendations and clearance from GI, in a stable condition with guarded prognosis. The impression and plan of care has been dictated as directed. : I performed a history and examination of this patient, discussed the same with the dictator. I agree with the dictator's note ,documented as a scribe. Any additional findings or plans will be noted. Patient Condition at Discharge: Stable Plan - Discharge Summary Discharge Rx Participant: Yes New Discharge Prescriptions: New Pantoprazole [Protonix] 40 mg PO AC-BRKFST #30 tablet.dr Spence Cyanocobalamin (Vitamin B-12) [Vitamin B-12] 1,000 mcg PO DAILY Cholecalciferol [Vitamin D3 (25 Mcg = 1000 Iu)] 1,000 unit PO DAILY Pioglitazone [Actos] 45 mg PO DAILY@1200 Maljamar-3 Fatty Acids/Fish Oil [Fish Oil 1,000 mg Softgel] 1 cap PO DAILY Glimepiride [Amaryl] 4 mg PO BID Cranberry Fruit Concentrate [Azo Cranberry] 250 mg PO DAILY@1200 Cinnamon Bark [Cinnamon] 1,000 mg PO DAILY Aspirin EC [Ecotrin Low Dose] 81 mg PO DAILY metFORMIN HCL 1,000 mg PO BID Simvastatin 20 mg PO DAILY Lisinopril-Hctz 10-12.5 mg [Zestoretic 10-12.5] 1 tab PO DAILY Magnesium 250 mg PO DAILY Biotin 5 mg PO DAILY Msm 1000mg 1 cap PO DAILY Ubidecarenone [Co Q-10] 400 mg PO DAILY Discharge Medication List Aspirin EC [Ecotrin Low Dose] 81 mg PO DAILY 02/13/20 [History] Biotin 5 mg PO DAILY 02/13/20 [History] Cholecalciferol [Vitamin D3 (25 Mcg = 1000 Iu)] 1,000 unit PO DAILY 02/13/20 [Hi story] Cinnamon Bark [Cinnamon] 1,000 mg PO DAILY 02/13/20 [History] Cranberry Fruit Concentrate [Azo Cranberry] 250 mg PO DAILY@1200 02/13/20 [History] Cyanocobalamin (Vitamin B-12) [Vitamin B-12] 1,000 mcg PO DAILY 02/13/20 [History] Glimepiride [Amaryl] 4 mg PO BID 02/13/20 [History] Lisinopril-Hctz 10-12.5 mg [Zestoretic 10-12.5] 1 tab PO DAILY 02/13/20 [History] Magnesium 250 mg PO DAILY 02/13/20 [History] Msm 1000mg 1 cap PO DAILY 02/13/20 [History] Maljamar-3 Fatty Acids/Fish Oil [Fish Oil 1,000 mg Softgel] 1 cap PO DAILY 02/13/20 [History] Pioglitazone [Actos] 45 mg PO DAILY@1200 02/13/20 [History] Simvastatin 20 mg PO DAILY 02/13/20 [History] Ubidecarenone [Co Q-10] 400 mg PO DAILY 02/13/20 [History] metFORMIN HCL 1,000 mg PO BID 02/13/20 [History] Pantoprazole [Protonix] 40 mg PO RUSTAM-ALVINKFST #30 tablet. 02/14/20 [Rx] Follow up Appointment(s)/Referral(s): Sidney Nelson MD [STAFF PHYSICIAN] - 02/24/20 9:00 am (Pick-up Holter monitor at the office when you are discharged. ) Janelle Morales DO [Primary Care Provider] - 1 Week Ambulatory/Diagnostic Orders: Complete Blood Count w/diff [LAB.AMB] Time Frame: 3 Days, Location: None Selected Activity/Diet/Wound Care/Special Instructions: Pending EGD, colonoscopy, final DC recommendations and clearance from GI. Aspirin to be resumed as per GI .24-hour Holter monitor outpatient-
--- NOTE | 2020-02-16 11:06 | P.PCN ---
Date of Procedure: 02/16/20 Description of Procedure: Brief history: 84-year-old female with a medical history significant for diabetes mellitus and hypertension who presented to the hospital for evaluation of the constellation of symptoms including near-syncope and vomiting. The patient reports a near syncopal episode. The patient's had 1 episode of dark colored vomitus and association with the episode. She denies any prior history of anemia except with her remotely. Denies any NSAID use. She denies any history of peptic ulcer disease. No associated abdominal pain. She denies any bright red blood per rectum but did have a dark bowel movement. She reports a remote history of colonoscopy past which she believes was negative. She denies any unintentional weight loss. Hemoglobin 11.1 on presentation and subsequently fell to 8.8 and 8.5 today with normocytic indices. WBC 4.7, platelet count 210,000, INR 1.1, total bilirubin 0.2, alkaline phosphatase 42, AST 19 and ALT 16. Patient was found to have a second-degree heart block on presentation and is being seen by the cardiology service with 2-D echo reporting preserved ejection fraction 55-60%. Procedure performed: Esophagogastroduodenoscopy with biopsy Colonoscopy Estimated blood loss: Minimal. Preoperative diagnosis: Anemia, hematemesis Anesthesia: MAC Procedure: After informed consent was obtained from the patient was brought into the endoscopy unit and IV sedation was administered by anesthesia under continuous monitoring. Initially upper endoscopy was done. The Olympus GF 190 video endoscope was inserted into the mouth and esophagus intubated without any difficulty and was gradually advanced into the stomach and duodenum and carefully examined. The bulb and second part of the duodenum appeared normal, with biopsies taken. The scope was then withdrawn into the stomach adequately insufflated with air and upon careful examination the antrum and body, cardia and fundus appeared normal, except for a 5 mm clean-based ulcers without high risk stigmata for bleeding which was biopsied. Biopsies of the antrum and body were also taken. The scope was then withdrawn into the esophagus. The GE junction was located at 36 cm to the incisors. It appeared regular with no erythema erosions or ulcerations. Rest of the esophagus appeared normal. Patient tolerated the procedure well. At this time the patient continued to remain sedation. Initial digital rectal examination was normal. Olympus CF 190 video colonoscope was then inserted into the rectum and gradually advanced to the cecum without any difficulty. Careful examination was performed as the scope was gradually being withdrawn. The prep was excellent. The cecum, ascending colon, transverse colon, descending colon, sigmoid colon and rectum appeared normal. Multiple small and large mouth diverticula noted in the sigmoid colon. Low-grade internal hemorrhoids noted. Retroflexion was performed in the rectum and no lesions were noted. Patient tolerated the procedure well. Impression: 1. Clean-based antral ulcer, biopsied. Biopsies of the duodenum and antrum and body. 2. Moderate sigmoid diverticulosis. Low-grade internal hemorrhoids. Recommendations: Findings of this examination were discussed with the patient. Okay to resume diet. Patient should be continued on Protonix daily. Await pathology from biopsies. Okay for discharge.
[2020-02-16 11:43] LABS: Glucose,Whole Blood 201 mg/dL (75-99)
[2020-02-16 12:13] VITALS: RESP 14
[2020-02-16 12:14] VITALS: BP 121/68; PULSE 66
--- NOTE | 2020-02-17 09:59 | CDI ---
Documentation Clarification Form Date: 02/16/2020 09:50:00 AM From: Merle Florez RN, CCDS Admit Date: 02/15/2020 09:25:00 AM Patient Name: Chelle Tavares V Visit Number: [id number] Discharge Date: 02/16/2020 01:00:00 PM ATTENTION: The Clinical Documentation Specialists (CDI) and [facility] Coding Staff appreciate your assistance in clarifying documentation. Please respond to the clarification below the line at the bottom and electronically sign. The CDI & [facility] Coding staff will review the response and follow-up if needed. Please note: Queries are made part of the Legal Health Record. If you have any questions, please contact the author of this message via ITS. Dr. Lul Epperson Anemia, possible acute is documented in your progress starting on 02/13 and continue in subsequent documentation. Please provide further clarification for the type of anemia. History/Risk Factors: Diabetes Mellitus, Hypertension Clinical indicators: 84-year-old female admitted with near syncope, nausea and vomiting x1 dark emesis 02/12 Hemoglobin: 11.1 02/13 Hemoglobin 8.8 02/15 Hemoglobin 8.6 02/12 Hematocrit:35.1 02/13 Hematocrit 28.5 02/15 Hematocrit 27.1 02/15 GI post EGD with biopsy and Colonoscopy impression: Clean-based anterior ulcer. Biopsies of duodenum and antrum and body. Moderate sigmoid diverticulosis. Treatment: Monitor CBC Protonix 40 mg po ac-breakfast 02/15 EGD, with biopsy, Colonscopy In order to capture the severity of condition, please clarify the type of anemia and etiology if known: Acute blood loss anemia Acute on chronic blood loss anemia Chronic blood loss anemia Unable to determine Other, please specify (Last Form Revision: November 2019) Acute blood loss anemia MTDD
== END 2020-02-16 13:00 | disposition home or self-care (01) | DRG 378 ==
LOC: EC 10:28 → 4SSUR 13:30 → OBSVTOIN 02-15 09:25
PROVIDERS: ADMIT Family Medicine; ATTEND Family Medicine
PROC: 0DJD8ZZ Inspection of Lower Intestinal Tract, Via Natural or Artificial Opening Endoscopic (ICD-10-PCS; principal; 2020-02-16 10:25)
PROC: 0DB78ZX Excision of Stomach, Pylorus, Via Natural or Artificial Opening Endoscopic, Diagnostic (ICD-10-PCS; principal; 2020-02-16 10:25)
PROC: 0DB98ZX Excision of Duodenum, Via Natural or Artificial Opening Endoscopic, Diagnostic (ICD-10-PCS; principal; 2020-02-16 10:25)
PROC: 0DB68ZX Excision of Stomach, Via Natural or Artificial Opening Endoscopic, Diagnostic (ICD-10-PCS; principal; 2020-02-16 10:25)
DX: K25.4 Chronic or unspecified gastric ulcer with hemorrhage (principal); I45.2 Bifascicular block; D62 Acute posthemorrhagic anemia; R55 Syncope and collapse; I44.1 Atrioventricular block, second degree; E11.65 Type 2 diabetes mellitus with hyperglycemia; D64.9 Anemia, unspecified; K57.30 Diverticulosis of large intestine without perforation or abscess without bleeding; E78.5 Hyperlipidemia, unspecified; E66.9 Obesity, unspecified; Z20.828 Contact with and (suspected) exposure to other viral communicable diseases; I10 Essential (primary) hypertension; E86.0 Dehydration; K64.8 Other hemorrhoids; F43.0 Acute stress reaction; Z68.34 Body mass index [BMI] 34.0-34.9, adult; Z79.82 Long term (current) use of aspirin; Z79.84 Long term (current) use of oral hypoglycemic drugs; Z79.899 Other long term (current) drug therapy; Z90.49 Acquired absence of other specified parts of digestive tract; Z90.710 Acquired absence of both cervix and uterus; Z80.3 Family history of malignant neoplasm of breast; Z82.49 Family history of ischemic heart disease and other diseases of the circulatory system
CPT/HCPCS: 36415; 43239; 45378; 71046; 80048; 80053; 82607; 82728; 82746; 83540; 83550; 83735; 84443; 84484; 85025; 85045; 85610; 85730; 87635; 88305; 88342; 93005; 93306; 99285

== ENCOUNTER 2020-02-27 17:38 | Emergency (ER) | payer MEDICARE, BC ==
[2020-02-27] MEDS ORDERED: ONDANSETRON 4 MG/2 ML VIAL IVP STA (18:16)
--- NOTE | 2020-02-27 18:18 | ED ---
General Adult HPI - General Source: patient Mode of arrival: wheelchair Limitations: no limitations <Abhinav Goldberg - Last Filed: 02/28/20 20:10> <Emy Oliver - Last Filed: 02/29/20 23:12> - General Chief complaint: Recheck/Abnormal Lab/Rx Stated complaint: Unable to urinate Time Seen by Provider: 02/27/20 17:45 - History of Present Illness Initial comments: Patient is a 84-year-old female presenting to emergency department with a chief complaint of unable to urinate and nausea. Patient reports the symptoms started about 3 weeks ago after she was discharged from the hospital. Patient reports she is only able to urinate small amounts at a time. States for the last few days she only urinates about twice per day even though she drinks large amounts of fluid. Reports epigastric and bilateral inguinal discomfort. She reports nausea intermittently but no vomiting. States she is having bowel movements at baseline. Denies any vaginal or urinary symptoms. Denies hematuria, hematochezia or melena. (Abhinav Goldberg) - Related Data Home Medications Medication Instructions Recorded Confirmed Aspirin EC [Ecotrin Low Dose] 81 mg PO DAILY 02/13/20 02/13/20 Biotin 5 mg PO DAILY 02/13/20 02/13/20 Cholecalciferol [Vitamin D3 (25 1,000 unit PO DAILY 02/13/20 02/13/20 Mcg = 1000 Iu)] Cinnamon Bark [Cinnamon] 1,000 mg PO DAILY 02/13/20 02/13/20 Cranberry Fruit Concentrate [Azo 250 mg PO DAILY@1200 02/13/20 02/13/20 Cranberry] Cyanocobalamin (Vitamin B-12) 1,000 mcg PO DAILY 02/13/20 02/13/20 [Vitamin B-12] Glimepiride [Amaryl] 4 mg PO BID 02/13/20 02/13/20 Lisinopril-Hctz 10-12.5 mg 1 tab PO DAILY 02/13/20 02/13/20 [Zestoretic 10-12.5] Magnesium 250 mg PO DAILY 02/13/20 02/13/20 Msm 1000mg 1 cap PO DAILY 02/13/20 02/13/20 [place]-3 Fatty Acids/Fish Oil [Fish 1 cap PO DAILY 02/13/20 02/13/20 Oil 1,000 mg Softgel] Pioglitazone [Actos] 45 mg PO DAILY@1200 02/13/20 02/13/20 Simvastatin 20 mg PO DAILY 02/13/20 02/13/20 Ubidecarenone [Co Q-10] 400 mg PO DAILY 02/13/20 02/13/20 metFORMIN HCL 1,000 mg PO BID 02/13/20 02/13/20 Previous Rx's Medication Instructions Recorded Pantoprazole [Protonix] 40 mg PO RUSTAM-KRYSTALFST #30 tablet. 02/14/20 Allergies Allergy/AdvReac Type Severity Reaction Status Date / Time No Known Allergies Allergy Verified 02/27/20 17:44 Review of Systems ROS Other: All systems not noted in ROS Statement are negative. <Abhinav Goldberg - Last Filed: 02/28/20 20:10> ROS Other: All systems not noted in ROS Statement are negative. <Emy Oliver - Last Filed: 02/29/20 23:12> ROS Statement: Those systems with pertinent positive or pertinent negative responses have been documented in the HPI. Past Medical History Past Medical History: Diabetes Mellitus, GERD/Reflux, Hypertension Additional Past Medical History / Comment(s): ulcer History of Any Multi-Drug Resistant Organisms: None Reported Past Surgical History: Cholecystectomy, Hysterectomy Additional Past Surgical History / Comment(s): eye Past Anesthesia/Blood Transfusion Reactions: No Reported Reaction Past Psychological History: No Psychological Hx Reported Smoking Status: Never smoker Past Alcohol Use History: None Reported Past Drug Use History: None Reported - Past Family History Sister(s) Family Medical History: Cancer <Abhinav Goldberg - Last Filed: 02/28/20 20:10> General Exam Limitations: no limitations General appearance: alert, in no apparent distress Head exam: Present: atraumatic, normocephalic, normal inspection Eye exam: Present: normal appearance, PERRL, EOMI Pupils: Present: normal accommodation ENT exam: Present: normal exam, normal oropharynx, mucous membranes moist Neck exam: Present: normal inspection, full ROM Respiratory exam: Present: normal lung sounds bilaterally. Absent: respiratory distress, wheezes, rales Cardiovascular Exam: Present: regular rate, normal rhythm, normal heart sounds GI/Abdominal exam: Present: soft. Absent: distended, tenderness, guarding, rebound Extremities exam: Present: normal inspection, full ROM Back exam: Present: normal inspection, full ROM Neurological exam: Present: alert, oriented X3 Psychiatric exam: Present: normal affect, normal mood Skin exam: Present: warm, dry, intact, normal color <Abhinav Goldberg - Last Filed: 02/28/20 20:10> Course Vital Signs 02/27/20 02/27/20 17:41 20:30 Temperature 98.1 F 98.0 F Pulse Rate 91 71 Respiratory 18 20 Rate Blood Pressure 201/73 153/74 O2 Sat by Pulse 99 98 Oximetry Medical Decision Making - Lab Data Result diagrams: 02/27/20 19:45 02/27/20 19:45 <Abhinav Goldberg - Last Filed: 02/28/20 20:10> - Lab Data Result diagrams: 02/27/20 19:45 02/27/20 19:45 <Emy Oliver - Last Filed: 02/29/20 23:12> - Medical Decision Making Patient is a 4-year-old female presenting to emergency Department with a chief complaint of unable to urinate. Patient is still able to hear and although she appears to have obstructive urinary symptoms. She did urinate while in the ED. Post void bladder scan revealed 50 mL of urine. UA shows shows no signs of urinary tract infection or bleeding. CBC shows anemia although this appears to be improving over the last month. CMP reveals decreased renal function although this was also prevalent over the whole month. Patient has no abdominal discomfort at this time. Patient will follow up with her primary care tomorrow. I also advised to follow-up with urologist regarding her urinary obstructive symptoms. Return parameters were thoroughly discussed the patient is understanding and agreeable. Case discussed physician. (Abhinav Goldberg) I was available for consultation in the emergency department. The history and physical exam were done by the midlevel provider. I was consulted for this patients care. I reviewed the case with the midlevel provider and based on their presentation of the patient, I agree with the assessment, medical decision making and plan of care as documented. Chart was dictated using Touch[employer] dictation software. Attempts were made to correct any dictation errors however some typographical errors may persist. Patient was seen during a national state of emergency due to the Covid-19 pandemic. (Emy Oliver) - Lab Data Lab Results 02/27/20 02/27/20 02/27/20 Range/Units 19:00 19:45 19:45 WBC 5.5 (3.8-10.6) k/uL RBC 3.08 L (3.80-5.40) m/uL Hgb 8.9 L (11.4-16.0) gm/dL Hct 28.3 L (34.0-46.0) % MCV 91.9 (80.0-100.0) fL MCH 29.0 (25.0-35.0) pg MCHC 31.5 (31.0-37.0) g/dL RDW 14.6 (11.5-15.5) % Plt Count 409 (150-450) k/uL Neutrophils % 64 % Lymphocytes % 22 % Monocytes % 7 % Eosinophils % 4 % Basophils % 0 % Neutrophils # 3.5 (1.3-7.7) k/uL Lymphocytes # 1.2 (1.0-4.8) k/uL Monocytes # 0.4 (0-1.0) k/uL Eosinophils # 0.2 (0-0.7) k/uL Basophils # 0.0 (0-0.2) k/uL Hypochromasia Slight Sodium 133 L (137-145) mmol/L Potassium 4.2 (3.5-5.1) mmol/L Chloride 98 (98-107) mmol/L Carbon Dioxide 28 (22-30) mmol/L Anion Gap 7 mmol/L BUN 16 (7-17) mg/dL Creatinine 1.19 H (0.52-1.04) mg/dL Est GFR (CKD-EPI)AfAm 49 (>60 ml/min/1.73 sqM) Est GFR (CKD-EPI)NonAf 42 (>60 ml/min/1.73 sqM) Glucose 126 H (74-99) mg/dL Calcium 9.7 (8.4-10.2) mg/dL Total Bilirubin 0.2 (0.2-1.3) mg/dL AST 25 (14-36) U/L ALT 17 (4-34) U/L Alkaline Phosphatase 50 (38-126) U/L Total Protein 6.8 (6.3-8.2) g/dL Albumin 4.2 (3.5-5.0) g/dL Lipase 230 (23-300) U/L Urine Color Colorless Urine Appearance Clear (Clear) Urine pH 6.5 (5.0-8.0) Ur Specific [place] 1.007 (1.001-1.035) Urine Protein Negative (Negative) Urine Glucose (UA) Negative (Negative) Urine Ketones Negative (Negative) Urine Blood Negative (Negative) Urine Nitrite Negative (Negative) Urine Bilirubin Negative (Negative) Urine Urobilinogen <2.0 (<2.0) mg/dL Ur Leukocyte Esterase Moderate H (Negative) Urine RBC <1 (0-5) /hpf Urine WBC 1 (0-5) /hpf Ur Squamous Epith Cells <1 (0-4) /hpf Urine Mucus Rare H (None) /hpf Disposition Is patient prescribed a controlled substance at d/c from ED?: No Time of Disposition: 20:23 <Abhinav Goldberg - Last Filed: 02/28/20 20:10> <Emy Oliver - Last Filed: 02/29/20 23:12> Clinical Impression: Lower urinary obstructive symptom Disposition: HOME SELF-CARE Condition: Stable Instructions (If sedation given, give patient instructions): Acute Urinary Retention in Women (ED), Chronic Urinary Retention in Women (ED) Additional Instructions: Follow-up with a urologist. Return to emergency department if symptoms worsen. Referrals: Janelle Morales DO [Primary Care Provider] - 1-2 days Mario Engle MD [STAFF PHYSICIAN] - 1-2 days
[2020-02-27 19:59] LABS: Basophils % (A) 0 %; Eosinophils # (A) 0.2 k/uL (0-0.7); Eosinophils % (A) 4 %; HCT 28.3 % (34.0-46.0); HGB 8.9 gm/dL (11.4-16.0); Hypochromasia Slight; Lymphocytes # (A) 1.2 k/uL (1.0-4.8); Lymphocytes % (A) 22 %; MCHC 31.5 g/dL (31.0-37.0); MCV 91.9 fL (80.0-100.0); Mean Platelet Volume 7.8; Monocytes # (A) 0.4 k/uL (0-1.0); Monocytes % (A) 7 %; Neutrophils # (A) 3.5 k/uL (1.3-7.7); Neutrophils % (A) 64 %; Platelet Count 409 k/uL (150-450); RBC 3.08 m/uL (3.80-5.40); RDW 14.6 % (11.5-15.5); WBC 5.5 k/uL (3.8-10.6)
[2020-02-27 20:05] LABS: Appearance,Urine Clear (Clear); Bilirubin,Urine Negative (Negative); Blood,Urine Negative (Negative); Color,Urine Colorless; Glucose,Urine (UA) Negative (Negative); Ketones,Urine Negative (Negative); Leukocyte Esterase,Urine Moderate (Negative); Mucus,Urine Rare /hpf; Nitrite,Urine Negative (Negative); PH, Urine 6.5 (5.0-8.0); Protein,Urine Negative (Negative); RBC,Urine <1 /hpf (0-5); Specific Gravity,Urine 1.007 (1.001-1.035); Squamous Epithelial Cell,Urine <1 /hpf (0-4); Urobilinogen,Urine <2.0 mg/dL (<2.0); WBC,Urine 1 /hpf (0-5)
[2020-02-27 20:09] LABS: Albumin 4.2 g/dL (3.5-5.0); Calcium 9.7 mg/dL (8.4-10.2); Potassium 4.2 mmol/L (3.5-5.1); Total Bilirubin 0.2 mg/dL (0.2-1.3); Total Protein 6.8 g/dL (6.3-8.2)
[2020-02-27 21:44] VITALS: BP 153/74; PULSE 71; RESP 20; TEMP 98
== END 2020-02-27 20:30 | disposition home or self-care (01) ==
LOC: EC 17:38
DX: R39.198 Other difficulties with micturition (principal); D64.9 Anemia, unspecified; R11.0 Nausea; E11.9 Type 2 diabetes mellitus without complications; I10 Essential (primary) hypertension; Z90.49 Acquired absence of other specified parts of digestive tract; Z90.710 Acquired absence of both cervix and uterus; Z79.82 Long term (current) use of aspirin; Z79.84 Long term (current) use of oral hypoglycemic drugs; Z79.899 Other long term (current) drug therapy
CPT/HCPCS: 36415; 80053; 83690; 85025; 81001; 99284; 96374; J2405

== ENCOUNTER 2020-03-07 18:05 | Emergency (ER) | payer MEDICARE, BC ==
[2020-03-07 18:29] LABS: Glucose,Whole Blood 210 mg/dL (75-99)
[2020-03-07 18:55] LABS: Basophils % (A) 0 %; Eosinophils # (A) 0.4 k/uL (0-0.7); Eosinophils % (A) 6 %; HGB 10.2 gm/dL (11.4-16.0); Hypochromasia Marked; Lymphocytes # (A) 1.4 k/uL (1.0-4.8); Lymphocytes % (A) 26 %; MCH 29.7 pg (25.0-35.0); MCHC 31.9 g/dL (31.0-37.0); Mean Platelet Volume 7.5; Monocytes # (A) 0.3 k/uL (0-1.0); Monocytes % (A) 6 %; Neutrophils # (A) 3.2 k/uL (1.3-7.7); Neutrophils % (A) 60 %; Platelet Count 406 k/uL (150-450); RBC 3.44 m/uL (3.80-5.40); RDW 14.3 % (11.5-15.5); WBC 5.4 k/uL (3.8-10.6)
--- NOTE | 2020-03-07 19:09 | XR ---
EXAMINATION TYPE: XR KUB DATE OF EXAM: 03/07/2020 COMPARISON: NONE HISTORY: Abdominal pain TECHNIQUE: 2 views upright FINDINGS: Lung bases appear clear of consolidation. There is some amorphous calcification over the ri ght upper quadrant that could be calcification in the liver or in the right lower lobe. There are cli ps from cholecystectomy. There is no sign of intestinal obstruction or pneumoperitoneum. Fecal patter n is normal. There is no evidence of a mass. IMPRESSION: Nonacute abdomen.
[2020-03-07 19:15] LABS: Albumin 4.6 g/dL (3.5-5.0); Calcium 9.6 mg/dL (8.4-10.2); Total Bilirubin 0.4 mg/dL (0.2-1.3); Total Protein 7.9 g/dL (6.3-8.2)
[2020-03-07 19:20] LABS: Potassium 4.6 mmol/L (3.5-5.1)
[2020-03-07 19:28] LABS: Prothrombin Time 10.2 sec (9.0-12.0)
[2020-03-07 19:29] LABS: Partial Thromboplastin Time 20.2 sec (22.0-30.0)
[2020-03-07 19:33] VITALS: RESP 16
[2020-03-07] MEDS ORDERED: SODIUM CHLORIDE 0.9% 500 ML 500 ML IV ONE (19:54)
[2020-03-07 20:27] LABS: Appearance,Urine Clear (Clear); Bilirubin,Urine Negative (Negative); Blood,Urine Negative (Negative); Color,Urine Light Yellow; Glucose,Urine (UA) Negative (Negative); Hyaline Casts,Urine 1 /lpf (0-2); Ketones,Urine Negative (Negative); Leukocyte Esterase,Urine Large (Negative); Mucus,Urine Rare /hpf; Nitrite,Urine Negative (Negative); PH, Urine 5.5 (5.0-8.0); Protein,Urine Negative (Negative); RBC,Urine 3 /hpf (0-5); Squamous Epithelial Cell,Urine 1 /hpf (0-4); Urobilinogen,Urine <2.0 mg/dL (<2.0); WBC,Urine 4 /hpf (0-5)
[2020-03-07] MEDS ORDERED: ONDANSETRON 4 MG ODT STARTER PACK 2 TAB BTL PO STA (20:52)
--- NOTE | 2020-03-07 20:53 | ED ---
Abdominal Pain HPI - General Chief Complaint: Abdominal Pain Stated Complaint: hypertension Time Seen by Provider: 03/07/20 19:18 Source: patient Mode of arrival: wheelchair Limitations: no limitations - History of Present Illness Initial Comments: 84-year-old female patient presents to the emergency department today for evaluation of nausea and elevated blood pressure. Patient states that she was recently admitted for a bleeding ulcer. States that she was discharged was doing better. States today she has had intermittent nausea and has been check ing her blood pressure has been elevated. Patient states she is very anxious since her diagnosis and wanted to be evaluated. Patient denies any current abdominal pain. States her nausea has resolved. She denies any vomiting today. Denies fever or chills. States she is having normal bowel movements that are normal in color, she denies hematochezia or melena. Patient states she is taking her her medications as directed including her Pepcid and blood pressure medications. She denies any chest pain or shortness breath. Denies headache, blurred vision, or double vision. Denies numbness, tingling, or weakness to her extremities. Patient denies any recent rash, cough, back pain, hematuria, dysuria, urinary urgency, urinary frequency, or any other complaints. - Related Data Home Medications Medication Instructions Recorded Confirmed Aspirin EC [Ecotrin Low Dose] 81 mg PO DAILY 02/13/20 03/07/20 Biotin 5 mg PO DAILY 02/13/20 03/07/20 Cholecalciferol [Vitamin D3 (25 1,000 unit PO DAILY 02/13/20 03/07/20 Mcg = 1000 Iu)] Cinnamon Bark [Cinnamon] 1,000 mg PO DAILY 02/13/20 03/07/20 Cranberry Fruit Concentrate [Azo 250 mg PO DAILY@1200 02/13/20 03/07/20 Cranberry] Cyanocobalamin (Vitamin B-12) 1,000 mcg PO DAILY 02/13/20 03/07/20 [Vitamin B-12] Glimepiride [Amaryl] 4 mg PO DAILY 02/13/20 03/07/20 Lisinopril-Hctz 10-12.5 mg 1 tab PO DAILY 02/13/20 03/07/20 [Zestoretic 10-12.5] Magnesium 250 mg PO DAILY 02/13/20 03/07/20 [place]-3 Fatty Acids/Fish Oil [Fish 1 cap PO DAILY 02/13/20 03/07/20 Oil 1,000 mg Softgel] Pioglitazone [Actos] 45 mg PO DAILY 02/13/20 03/07/20 Ubidecarenone [Co Q-10] 400 mg PO DAILY 02/13/20 03/07/20 metFORMIN HCL 1,000 mg PO BID 02/13/20 03/07/20 Famotidine [Pepcid] 20 mg PO DAILY 03/07/20 03/07/20 Simvastatin [Zocor] 20 mg PO HS 03/07/20 03/07/20 Previous Rx's Medication Instructions Recorded ALPRAZolam [Xanax] 0.25 mg PO HS PRN 3 Days #3 tab 03/07/20 Ondansetron [Zofran ODT] 4 mg PO Q8HR PRN #10 tab 03/07/20 Allergies Allergy/AdvReac Type Severity Reaction Status Date / Time No Known Allergies Allergy Verified 03/07/20 20:06 Review of Systems ROS Statement: Those systems with pertinent positive or pertinent negative responses have been documented in the HPI. ROS Other: All systems not noted in ROS Statement are negative. 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 History of Any Multi-Drug Resistant Organisms: None Reported Past Surgical History: Cholecystectomy, Hysterectomy Additional Past Surgical History / Comment(s): eye Past Anesthesia/Blood Transfusion Reactions: No Reported Reaction Past Psychological History: No Psychological Hx Reported Smoking Status: Never smoker Past Alcohol Use History: None Reported Past Drug Use History: None Reported - Past Family History Sister(s) Family Medical History: Cancer General Exam Limitations: no limitations General appearance: alert, in no apparent distress, other (Physical well- developed, well-nourished adult female patient in no acute distress. Vital signs upon presentation are temperature 98.6F, pulse 79, respirations 17, blood pressure 161/70, pulse ox 97% on room air) Eye exam: Present: normal appearance, PERRL, EOMI. Absent: scleral icterus, conjunctival injection, periorbital swelling ENT exam: Present: normal exam, normal oropharynx, mucous membranes moist Respiratory exam: Present: normal lung sounds bilaterally. Absent: respiratory distress, wheezes, rales, rhonchi, stridor Cardiovascular Exam: Present: regular rate, normal rhythm, normal heart sounds. Absent: systolic murmur, diastolic murmur, rubs, gallop, clicks GI/Abdominal exam: Present: soft, normal bowel sounds. Absent: distended, tenderness, guarding, rebound, rigid Neurological exam: Present: alert, oriented X3, CN II-XII intact Psychiatric exam: Present: normal affect, normal mood Skin exam: Present: warm, dry, intact, normal color. Absent: rash Course Vital Signs 03/07/20 03/07/20 03/07/20 18:10 19:30 20:00 Temperature 98.6 F Pulse Rate 79 80 79 Respiratory 17 16 16 Rate Blood Pressure 161/70 148/67 167/79 O2 Sat by Pulse 97 96 96 Oximetry 03/07/20 03/07/20 21:00 21:09 Temperature 98.9 F Pulse Rate 69 69 Respiratory 16 16 Rate Blood Pressure 139/67 139/67 O2 Sat by Pulse 94 L 94 L Oximetry Medical Decision Making - Medical Decision Making 84-year-old female patient presented to the emergency department today for evaluation of nausea and elevated blood pressure. Physical examination was relatively unremarkable. Abdomen soft and nontender. She is neurologically intact with no focal deficits. Labs reviewed and reveal decreased hemoglobin at 10.2 which is improved from her previous hospital stay. Sodium is 133, BUN 22, creatinine 1.34. Urinalysis shows no evidence for infection. I did discuss findings and results with the patient. She is feeling better. She'll be discharged prescription for Zofran. She is instructed to follow-up with her primary care physician for recheck in 1-2 days. Return parameters discussed in detail. She verbalizes understanding and agrees with this plan. - Lab Data Result diagrams: 03/07/20 18:45 03/07/20 18:45 Lab Results 03/07/20 03/07/20 03/07/20 Range/Units 18:25 18:45 18:45 WBC 5.4 (3.8-10.6) k/uL RBC 3.44 L (3.80-5.40) m/uL Hgb 10.2 L (11.4-16.0) gm/dL Hct 32.0 L (34.0-46.0) % MCV 93.0 (80.0-100.0) fL MCH 29.7 (25.0-35.0) pg MCHC 31.9 (31.0-37.0) g/dL RDW 14.3 (11.5-15.5) % Plt Count 406 (150-450) k/uL Neutrophils % 60 % Lymphocytes % 26 % Monocytes % 6 % Eosinophils % 6 % Basophils % 0 % Neutrophils # 3.2 (1.3-7.7) k/uL Lymphocytes # 1.4 (1.0-4.8) k/uL Monocytes # 0.3 (0-1.0) k/uL Eosinophils # 0.4 (0-0.7) k/uL Basophils # 0.0 (0-0.2) k/uL Hypochromasia Marked PT (9.0-12.0) sec INR (<1.2) APTT (22.0-30.0) sec Sodium 133 L (137-145) mmol/L Potassium 4.6 (3.5-5.1) mmol/L Chloride 100 (98-107) mmol/L Carbon Dioxide 24 (22-30) mmol/L Anion Gap 9 mmol/L BUN 22 H (7-17) mg/dL Creatinine 1.34 H (0.52-1.04) mg/dL Est GFR (CKD-EPI)AfAm 42 (>60 ml/min/1.73 sqM) Est GFR (CKD-EPI)NonAf 37 (>60 ml/min/1.73 sqM) Glucose 210 H (74-99) mg/dL POC Glucose (mg/dL) 210 H (75-99) mg/dL POC Glu 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 ID Cammy Roman Calcium 9.6 (8.4-10.2) mg/dL Total Bilirubin 0.4 (0.2-1.3) mg/dL AST 37 H (14-36) U/L ALT 19 (4-34) U/L Alkaline Phosphatase 49 (38-126) U/L Troponin I (0.000-0.034) ng/mL Total Protein 7.9 (6.3-8.2) g/dL Albumin 4.6 (3.5-5.0) g/dL Amylase 98 (30-110) U/L Lipase 268 (23-300) U/L Urine Color Urine Appearance (Clear) Urine pH (5.0-8.0) Ur Specific [place] (1.001-1.035) Urine Protein (Negative) Urine Glucose (UA) (Negative) Urine Ketones (Negative) Urine Blood (Negative) Urine Nitrite (Negative) Urine Bilirubin (Negative) Urine Urobilinogen (<2.0) mg/dL Ur Leukocyte Esterase (Negative) Urine RBC (0-5) /hpf Urine WBC (0-5) /hpf Ur Squamous Epith Cells (0-4) /hpf Hyaline Casts (0-2) /lpf Urine Mucus (None) /hpf 03/07/20 03/07/20 03/07/20 Range/Units 18:45 18:45 20:02 WBC (3.8-10.6) k/uL RBC (3.80-5.40) m/uL Hgb (11.4-16.0) gm/dL Hct (34.0-46.0) % MCV (80.0-100.0) fL MCH (25.0-35.0) pg MCHC (31.0-37.0) g/dL RDW (11.5-15.5) % Plt Count (150-450) k/uL Neutrophils % % Lymphocytes % % Monocytes % % Eosinophils % % Basophils % % Neutrophils # (1.3-7.7) k/uL Lymphocytes # (1.0-4.8) k/uL Monocytes # (0-1.0) k/uL Eosinophils # (0-0.7) k/uL Basophils # (0-0.2) k/uL Hypochromasia PT 10.2 (9.0-12.0) sec INR 1.0 (<1.2) APTT 20.2 L (22.0-30.0) sec Sodium (137-145) mmol/L Potassium (3.5-5.1) mmol/L Chloride (98-107) mmol/L Carbon Dioxide (22-30) mmol/L Anion Gap mmol/L BUN (7-17) mg/dL Creatinine (0.52-1.04) mg/dL Est GFR (CKD-EPI)AfAm (>60 ml/min/1.73 sqM) Est GFR (CKD-EPI)NonAf (>60 ml/min/1.73 sqM) Glucose (74-99) mg/dL POC Glucose (mg/dL) (75-99) mg/dL POC Glu 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 [employer]per Gas ID Calcium (8.4-10.2) mg/dL Total Bilirubin (0.2-1.3) mg/dL AST (14-36) U/L ALT (4-34) U/L Alkaline Phosphatase (38-126) U/L Troponin I <0.012 (0.000-0.034) ng/mL Total Protein (6.3-8.2) g/dL Albumin (3.5-5.0) g/dL Amylase (30-110) U/L Lipase (23-300) U/L Urine Color Light Yellow Urine Appearance Clear (Clear) Urine pH 5.5 (5.0-8.0) Ur Specific [place] 1.010 (1.001-1.035) Urine Protein Negative (Negative) Urine Glucose (UA) Negative (Negative) Urine Ketones Negative (Negative) Urine Blood Negative (Negative) Urine Nitrite Negative (Negative) Urine Bilirubin Negative (Negative) Urine Urobilinogen <2.0 (<2.0) mg/dL Ur Leukocyte Esterase Large H (Negative) Urine RBC 3 (0-5) /hpf Urine WBC 4 (0-5) /hpf Ur Squamous Epith Cells 1 (0-4) /hpf Hyaline Casts 1 (0-2) /lpf Urine Mucus Rare H (None) /hpf - Radiology Data Radiology results: report reviewed, image reviewed 2 views of the abdomen are obtained. Report was reviewed in its entirety. Impression by Dr. Cifuentes shows nonacute abdomen. Disposition Clinical Impression: Nausea, Hypertension Disposition: HOME SELF-CARE Condition: Good Instructions (If sedation given, give patient instructions): Acute Nausea and Vomiting (ED), Hypertension (ED) Additional Instructions: Take medication as needed for nausea. Keep a log of your blood pressures and follow-up with your primary care physician for further evaluation. Return to the emergency department immediately for any new, worsening, or concerning symptoms. Prescriptions: ALPRAZolam [Xanax] 0.25 mg PO HS PRN 3 Days #3 tab PRN Reason: Anxiety Ondansetron [Zofran ODT] 4 mg PO Q8HR PRN #10 tab PRN Reason: Nausea Is patient prescribed a controlled substance at d/c from ED?: No Referrals: Janelle Morales DO [Primary Care Provider] - 1-2 days Time of Disposition: 20:53
[2020-03-07 21:03] VITALS: BP 139/67; PULSE 69
[2020-03-07 21:14] VITALS: TEMP 98.9
== END 2020-03-07 21:15 | disposition home or self-care (01) ==
LOC: EC 18:05
DX: I10 Essential (primary) hypertension (principal); R11.0 Nausea; E11.9 Type 2 diabetes mellitus without complications; K21.9 Gastro-esophageal reflux disease without esophagitis; R00.1 Bradycardia, unspecified; R10.9 Unspecified abdominal pain; Z79.84 Long term (current) use of oral hypoglycemic drugs; Z79.82 Long term (current) use of aspirin; Z87.19 Personal history of other diseases of the digestive system; Z90.49 Acquired absence of other specified parts of digestive tract; Z99.89 Dependence on other enabling machines and devices
CPT/HCPCS: 36415; 93005; 80053; 82150; 83690; 84484; 85025; 85610; 85730; 81001; 74018; 99284; S0119

== ENCOUNTER 2020-08-10 11:40 | Emergency (ER) | payer MEDICARE, BC ==
[2020-08-10 11:45] VITALS: RESP 18; TEMP 97.7
--- NOTE | 2020-08-10 12:54 | ED ---
Upper Extremity HPI - General Chief Complaint: Extremity Injury, Upper Stated Complaint: Fall, arm injury Time Seen by Provider: 08/10/20 12:14 Source: patient, RN notes reviewed Mode of arrival: ambulatory Limitations: no limitations - History of Present Illness Initial Comments: 9-year-old female presents emergency Department chief complaint of right hand wrist injury. Patient states that she was cleaning yesterday states he went to a vacuum loss of balance falling catching herself with her right hand. Patient had no prior fractures. Denies any paresthesias no head injury no loss conscious. She states she has decreased motion secondary to pain. - Related Data Home Medications Medication Instructions Recorded Confirmed Aspirin EC [Ecotrin Low Dose] 81 mg PO DAILY 02/13/20 03/07/20 Biotin 5 mg PO DAILY 02/13/20 03/07/20 Cholecalciferol [Vitamin D3 (25 1,000 unit PO DAILY 02/13/20 03/07/20 Mcg = 1000 Iu)] Cinnamon Bark [Cinnamon] 1,000 mg PO DAILY 02/13/20 03/07/20 Cranberry Fruit Concentrate [Azo 250 mg PO DAILY@1200 02/13/20 03/07/20 Cranberry] Cyanocobalamin (Vitamin B-12) 1,000 mcg PO DAILY 02/13/20 03/07/20 [Vitamin B-12] Glimepiride [Amaryl] 4 mg PO DAILY 02/13/20 03/07/20 Lisinopril-Hctz 10-12.5 mg 1 tab PO DAILY 02/13/20 03/07/20 [Zestoretic 10-12.5] Magnesium 250 mg PO DAILY 02/13/20 03/07/20 [place]-3 Fatty Acids/Fish Oil [Fish 1 cap PO DAILY 02/13/20 03/07/20 Oil 1,000 mg Softgel] Pioglitazone [Actos] 45 mg PO DAILY 02/13/20 03/07/20 Ubidecarenone [Co Q-10] 400 mg PO DAILY 02/13/20 03/07/20 metFORMIN HCL 1,000 mg PO BID 02/13/20 03/07/20 Famotidine [Pepcid] 20 mg PO DAILY 03/07/20 03/07/20 Simvastatin [Zocor] 20 mg PO HS 03/07/20 03/07/20 Previous Rx's Medication Instructions Recorded ALPRAZolam [Xanax] 0.25 mg PO HS PRN 3 Days #3 tab 03/07/20 Ondansetron [Zofran ODT] 4 mg PO Q8HR PRN #10 tab 03/07/20 Allergies Allergy/AdvReac Type Severity Reaction Status Date / Time No Known Allergies Allergy Verified 08/10/20 11:45 Review of Systems ROS Statement: Those systems with pertinent positive or pertinent negative responses have been documented in the HPI. ROS Other: All systems not noted in ROS Statement are negative. 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 History of Any Multi-Drug Resistant Organisms: None Reported Past Surgical History: Cholecystectomy, Hysterectomy Additional Past Surgical History / Comment(s): eye Past Anesthesia/Blood Transfusion Reactions: No Reported Reaction Past Psychological History: No Psychological Hx Reported Smoking Status: Never smoker Past Alcohol Use History: None Reported Past Drug Use History: None Reported - Past Family History Sister(s) Family Medical History: Cancer General Exam Limitations: no limitations General appearance: alert, in no apparent distress Head exam: Present: atraumatic, normocephalic, normal inspection Respiratory exam: Present: normal lung sounds bilaterally. Absent: respiratory distress, wheezes, rales, rhonchi, stridor Cardiovascular Exam: Present: regular rate, normal rhythm, normal heart sounds. Absent: systolic murmur, diastolic murmur, rubs, gallop, clicks Extremities exam: Present: other (right wrist and hand there is ecchymosis, swelling, tenderness with palpation, neurovascular intact no proximal forearm tenderness) Course Vital Signs 08/10/20 11:41 Temperature 97.7 F Pulse Rate 81 Respiratory 18 Rate Blood Pressure 165/70 O2 Sat by Pulse 99 Oximetry Medical Decision Making - Medical Decision Making 84-year-old presented for fall right wrist and arm injury. There is suspected fracture of the radius. Patient was splinted and will follow-up with orthopedics. Disposition Clinical Impression: Fracture of right distal radius Disposition: HOME SELF-CARE Condition: Stable Instructions (If sedation given, give patient instructions): Arm Fracture in Adults (ED) Additional Instructions: Please return to the Emergency Department if symptoms worsen or any other concerns. Is patient prescribed a controlled substance at d/c from ED?: No Referrals: Janelle Morales DO [Primary Care Provider] - 1-2 days Enoch Shaw MD [STAFF PHYSICIAN] - 1-2 days Time of Disposition: 13:49
--- NOTE | 2020-08-10 13:09 | XR ---
EXAMINATION TYPE: XR wrist complete RT, XR hand complete RT DATE OF EXAM: 08/10/2020 CLINICAL HISTORY: Pain after fall injury. TECHNIQUE: Frontal, lateral and oblique images of the right hand and wrist are obtained. A fourth s caphoid view acquired. COMPARISON: None FINDINGS: Osseous structures are demineralized. There is no acute fracture/dislocation evident in th e right wrist. [id number] triscaphe joint space loss. The overlying soft tissue appears unrema rkable. Incomplete extension of the phalanges. Moderate soft tissue swelling. Mild to moderate narrowing of t he PIP and DIP joints with mild spurring. No acute fracture or dislocation. IMPRESSION: There is no acute fracture or dislocation in the right hand or wrist.
[2020-08-10 13:56] VITALS: BP 144/79; PULSE 64
== END 2020-08-10 13:56 | disposition home or self-care (01) ==
LOC: EC 11:40
DX: S52.501A Unspecified fracture of the lower end of right radius, initial encounter for closed fracture (principal); E11.9 Type 2 diabetes mellitus without complications; K21.9 Gastro-esophageal reflux disease without esophagitis; I10 Essential (primary) hypertension; Z79.84 Long term (current) use of oral hypoglycemic drugs; Z79.899 Other long term (current) drug therapy; Z90.49 Acquired absence of other specified parts of digestive tract; W18.30XA Fall on same level, unspecified, initial encounter; Y93.E8 Activity, other personal hygiene; Y92.009 Unspecified place in unspecified non-institutional (private) residence as the place of occurrence of the external cause
CPT/HCPCS: 29125; 99283

== ENCOUNTER 2020-09-04 00:18 | Emergency (ER) | payer MEDICARE, BC ==
[2020-09-04 00:25] VITALS: TEMP 98.3
[2020-09-04] MEDS ORDERED: ONDANSETRON 4 MG/2 ML VIAL IVP STA (00:36)
[2020-09-04] MEDS ORDERED: SODIUM CHLORIDE 0.9% 500 ML 500 ML IV STA (00:36)
[2020-09-04] MEDS ORDERED: TRANEXAMIC ACID 1,000 MG/10 ML VIAL INHALATION ONE (00:53)
--- NOTE | 2020-09-04 00:53 | ED ---
General Adult HPI - General Chief complaint: Back Pain/Injury Stated complaint: Abdominal Pain Time Seen by Provider: 09/04/20 00:26 Source: patient, RN notes reviewed Mode of arrival: ambulatory Limitations: no limitations - History of Present Illness Initial comments: 84-year-old female with a past medical history of diabetes mellitus, GERD, hypertension, ulcer presents to the emergency room for a chief complaint of right-sided flank pain. Patient states that she has had right-sided flank pain for 2 days now. States that it is constant. Patient states when resting it as a 4 out of 10 and with movement it is a 10 out of 10. Patient states it started when she was just sitting at the table. Patient admits to nausea and started today as well. Denies diarrhea. Patient was also experiencing some epigastric discomfort earlier today that resolved with Tums.Patient has no other complaints at this time including shortness of breath, chest pain, abdominal pain, nausea or vomiting, headache, or visual changes. - Related Data Home Medications Medication Instructions Recorded Confirmed Aspirin EC [Ecotrin Low Dose] 81 mg PO DAILY 02/13/20 03/07/20 Biotin 5 mg PO DAILY 02/13/20 03/07/20 Cholecalciferol [Vitamin D3 (25 1,000 unit PO DAILY 02/13/20 03/07/20 Mcg = 1000 Iu)] Cinnamon Bark [Cinnamon] 1,000 mg PO DAILY 02/13/20 03/07/20 Cranberry Fruit Concentrate [Azo 250 mg PO DAILY@1200 02/13/20 03/07/20 Cranberry] Cyanocobalamin (Vitamin B-12) 1,000 mcg PO DAILY 02/13/20 03/07/20 [Vitamin B-12] Glimepiride [Amaryl] 4 mg PO DAILY 02/13/20 03/07/20 Lisinopril-Hctz 10-12.5 mg 1 tab PO DAILY 02/13/20 03/07/20 [Zestoretic 10-12.5] Magnesium 250 mg PO DAILY 02/13/20 03/07/20 [place]-3 Fatty Acids/Fish Oil [Fish 1 cap PO DAILY 02/13/20 03/07/20 Oil 1,000 mg Softgel] Pioglitazone [Actos] 45 mg PO DAILY 02/13/20 03/07/20 Ubidecarenone [Co Q-10] 400 mg PO DAILY 02/13/20 03/07/20 metFORMIN HCL 1,000 mg PO BID 02/13/20 03/07/20 Famotidine [Pepcid] 20 mg PO DAILY 03/07/20 03/07/20 Simvastatin [Zocor] 20 mg PO HS 03/07/20 03/07/20 Previous Rx's Medication Instructions Recorded ALPRAZolam [Xanax] 0.25 mg PO HS PRN 3 Days #3 tab 03/07/20 Ondansetron [Zofran ODT] 4 mg PO Q8HR PRN #10 tab 03/07/20 Allergies Allergy/AdvReac Type Severity Reaction Status Date / Time No Known Allergies Allergy Verified 09/04/20 00:25 Review of Systems ROS Statement: Those systems with pertinent positive or pertinent negative responses have been documented in the HPI. ROS Other: All systems not noted in ROS Statement are negative. 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 History of Any Multi-Drug Resistant Organisms: None Reported Past Surgical History: Cholecystectomy, Hysterectomy Additional Past Surgical History / Comment(s): eye Past Anesthesia/Blood Transfusion Reactions: No Reported Reaction Past Psychological History: No Psychological Hx Reported Smoking Status: Never smoker Past Alcohol Use History: None Reported Past Drug Use History: None Reported - Past Family History Sister(s) Family Medical History: Cancer General Exam Limitations: no limitations General appearance: alert, in no apparent distress Head exam: Present: atraumatic, normocephalic, normal inspection Eye exam: Present: normal appearance, PERRL, EOMI. Absent: scleral icterus, conjunctival injection, periorbital swelling ENT exam: Present: normal exam, mucous membranes moist Neck exam: Present: normal inspection, full ROM. Absent: tenderness, meningismus, lymphadenopathy Respiratory exam: Present: normal lung sounds bilaterally. Absent: respiratory distress, wheezes, rales, rhonchi, stridor Cardiovascular Exam: Present: regular rate, normal rhythm, normal heart sounds. Absent: systolic murmur, diastolic murmur, rubs, gallop, clicks GI/Abdominal exam: Present: soft, normal bowel sounds. Absent: distended, t enderness, guarding, rebound, rigid Back exam: Present: CVA tenderness (R). Absent: CVA tenderness (L) Course Vital Signs 09/04/20 09/04/20 00:20 01:18 Temperature 98.3 F Pulse Rate 89 80 Respiratory 20 19 Rate Blood Pressure 194/77 162/72 O2 Sat by Pulse 98 97 Oximetry EKG Findings - EKG Comments: EKG Findings:: Sinus rhythm, first-degree AV block, ventricular rate 75, DE interval 312, QTC 484 Medical Decision Making - Medical Decision Making Vitals are stable. Patient does have right CVA tenderness. Exam is otherwise unremarkable. CBC unremarkable. CMP does show some evidence of dehydration, patient given him fluids. EKG nonischemic, troponin negative. Urinalysis does not show any obvious evidence of infection. CT abdomen and pelvis shows a small 1 mm calculus in the right ureter which is consistent with patient's symptoms. A cirrhotic-appearing liver is noted with a low-density lesion. Patient reports that this has been there since she was 49. At this time patient's pain is improved. She is currently rating her pain at L1 and is denying any pain medication. Patient will be given one dose of Flomax. She will follow up with primary care in urology. She will return here for any worsening symptoms. - Lab Data Result diagrams: 09/04/20 00:58 09/04/20 00:58 Lab Results 09/04/20 09/04/20 09/04/20 Range/Units 00:58 00:58 00:58 WBC 6.9 (3.8-10.6) k/uL RBC 4.60 (3.80-5.40) m/uL Hgb 12.8 (11.4-16.0) gm/dL Hct 41.4 (34.0-46.0) % MCV 90.0 (80.0-100.0) fL MCH 27.8 (25.0-35.0) pg MCHC 30.9 L (31.0-37.0) g/dL RDW 15.1 (11.5-15.5) % Plt Count 375 (150-450) k/uL MPV 7.6 Neutrophils % 57 % Lymphocytes % 27 % Monocytes % 8 % Eosinophils % 5 % Basophils % 1 % Neutrophils # 3.9 (1.3-7.7) k/uL Lymphocytes # 1.9 (1.0-4.8) k/uL Monocytes # 0.5 (0-1.0) k/uL Eosinophils # 0.3 (0-0.7) k/uL Basophils # 0.1 (0-0.2) k/uL Sodium 135 L (137-145) mmol/L Potassium 5.1 (3.5-5.1) mmol/L Chloride 100 (98-107) mmol/L Carbon Dioxide 25 (22-30) mmol/L Anion Gap 10 mmol/L BUN 23 H (7-17) mg/dL Creatinine 1.08 H (0.52-1.04) mg/dL Est GFR (CKD-EPI)AfAm 55 (>60 ml/min/1.73 sqM) Est GFR (CKD-EPI)NonAf 48 (>60 ml/min/1.73 sqM) Glucose 178 H (74-99) mg/dL Calcium 10.1 (8.4-10.2) mg/dL Total Bilirubin 0.5 (0.2-1.3) mg/dL AST 34 (14-36) U/L ALT 21 (4-34) U/L Alkaline Phosphatase 62 (38-126) U/L Troponin I (0.000-0.034) ng/mL Total Protein 8.2 (6.3-8.2) g/dL Albumin 4.8 (3.5-5.0) g/dL Amylase 53 (30-110) U/L Lipase 283 (23-300) U/L Urine Color Colorless Urine Appearance Clear (Clear) Urine pH 5.5 (5.0-8.0) Ur Specific Hanna 1.007 (1.001-1.035) Urine Protein Negative (Negative) Urine Glucose (UA) Negative (Negative) Urine Ketones Negative (Negative) Urine Blood Negative (Negative) Urine Nitrite Negative (Negative) Urine Bilirubin Negative (Negative) Urine Urobilinogen <2.0 (<2.0) mg/dL Ur Leukocyte Esterase Trace H (Negative) Urine RBC <1 (0-5) /hpf Urine WBC 1 (0-5) /hpf Urine Mucus Rare H (None) /hpf 09/04/20 Range/Units 00:58 WBC (3.8-10.6) k/uL RBC (3.80-5.40) m/uL Hgb (11.4-16.0) gm/dL Hct (34.0-46.0) % MCV (80.0-100.0) fL MCH (25.0-35.0) pg MCHC (31.0-37.0) g/dL RDW (11.5-15.5) % Plt Count (150-450) k/uL MPV Neutrophils % % Lymphocytes % % Monocytes % % Eosinophils % % Basophils % % Neutrophils # (1.3-7.7) k/uL Lymphocytes # (1.0-4.8) k/uL Monocytes # (0-1.0) k/uL Eosinophils # (0-0.7) k/uL Basophils # (0-0.2) k/uL Sodium (137-145) mmol/L Potassium (3.5-5.1) mmol/L Chloride (98-107) mmol/L Carbon Dioxide (22-30) mmol/L Anion Gap mmol/L BUN (7-17) mg/dL Creatinine (0.52-1.04) mg/dL Est GFR (CKD-EPI)AfAm (>60 ml/min/1.73 sqM) Est GFR (CKD-EPI)NonAf (>60 ml/min/1.73 sqM) Glucose (74-99) mg/dL Calcium (8.4-10.2) mg/dL Total Bilirubin (0.2-1.3) mg/dL AST (14-36) U/L ALT (4-34) U/L Alkaline Phosphatase (38-126) U/L Troponin I <0.012 (0.000-0.034) ng/mL Total Protein (6.3-8.2) g/dL Albumin (3.5-5.0) g/dL Amylase (30-110) U/L Lipase (23-300) U/L Urine Color Urine Appearance (Clear) Urine pH (5.0-8.0) Ur Specific Hanna (1.001-1.035) Urine Protein (Negative) Urine Glucose (UA) (Negative) Urine Ketones (Negative) Urine Blood (Negative) Urine Nitrite (Negative) Urine Bilirubin (Negative) Urine Urobilinogen (<2.0) mg/dL Ur Leukocyte Esterase (Negative) Urine RBC (0-5) /hpf Urine WBC (0-5) /hpf Urine Mucus (None) /hpf Disposition Clinical Impression: Kidney stone on right side Disposition: HOME SELF-CARE Condition: Good Instructions (If sedation given, give patient instructions): Kidney Stones (ED) Additional Instructions: Please take tylenol for pain. Follow-up with primary care in urology. If symptoms worsen return to the emergency room. Is patient prescribed a controlled substance at d/c from ED?: No Referrals: Janelle Morales DO [Primary Care Provider] - 1-2 days Marcus Nichols MD [STAFF PHYSICIAN] - 1-2 days Time of Disposition: 02:07
[2020-09-04] MEDS ORDERED: LABETALOL 5 MG/ML VIAL MDV IVP STA (00:54)
[2020-09-04 01:18] LABS: Appearance,Urine Clear (Clear); Bilirubin,Urine Negative (Negative); Blood,Urine Negative (Negative); Color,Urine Colorless; Glucose,Urine (UA) Negative (Negative); Ketones,Urine Negative (Negative); Leukocyte Esterase,Urine Trace (Negative); Mucus,Urine Rare /hpf; Nitrite,Urine Negative (Negative); PH, Urine 5.5 (5.0-8.0); Protein,Urine Negative (Negative); RBC,Urine <1 /hpf (0-5); Specific Gravity,Urine 1.007 (1.001-1.035); Urobilinogen,Urine <2.0 mg/dL (<2.0); WBC,Urine 1 /hpf (0-5)
[2020-09-04 01:20] LABS: Basophils # (A) 0.1 k/uL (0-0.2); Basophils % (A) 1 %; Eosinophils # (A) 0.3 k/uL (0-0.7); Eosinophils % (A) 5 %; HCT 41.4 % (34.0-46.0); HGB 12.8 gm/dL (11.4-16.0); Lymphocytes # (A) 1.9 k/uL (1.0-4.8); Lymphocytes % (A) 27 %; MCH 27.8 pg (25.0-35.0); MCHC 30.9 g/dL (31.0-37.0); Mean Platelet Volume 7.6; Monocytes # (A) 0.5 k/uL (0-1.0); Monocytes % (A) 8 %; Neutrophils # (A) 3.9 k/uL (1.3-7.7); Neutrophils % (A) 57 %; Platelet Count 375 k/uL (150-450); RDW 15.1 % (11.5-15.5); WBC 6.9 k/uL (3.8-10.6)
[2020-09-04] MEDS: HYDROmorphone 0.5 MG/0.5 ML SYRINGE IVP STA ×2 (01:20→02:15)
[2020-09-04 01:22] LABS: Albumin 4.8 g/dL (3.5-5.0); Calcium 10.1 mg/dL (8.4-10.2); Total Bilirubin 0.5 mg/dL (0.2-1.3); Total Protein 8.2 g/dL (6.3-8.2)
[2020-09-04 01:36] LABS: Potassium 5.1 mmol/L (3.5-5.1)
--- NOTE | 2020-09-04 01:36 | CT ---
EXAM: CT Abdomen and Pelvis Without Intravenous Contrast CLINICAL HISTORY: ITS.REASON CT Reason: kidney stone TECHNIQUE: Axial computed tomography images of the abdomen and pelvis without intravenous contrast. CTDI is 19.57 mGy and DLP is 1081.4 mGy-cm. This CT exam was performed using one or more of the following dose reduction techniques: automated exposure control, adjustment of the mA and/or kV according to patient size, and/or use of iterative reconstruction technique. COMPARISON: No relevant prior studies available. FINDINGS: Lung bases: Bibasilar atelectasis. Heart: Coronary artery calcifications. ABDOMEN: Liver: Low-density lesion with large area of calcification seen within hepatic segment 7 measuring up to 2.6 cm, which is nonspecific. Cirrhotic appearing liver. Gallbladder and bile ducts: Gallbladder is surgically absent. Pancreas: Unremarkable. Spleen: Unremarkable. Adrenals: Unremarkable. Kidneys and ureters: Question tiny calculus seen at the distal right ureter measuring up to 1 mm (201-135). No hydroureteronephrosis. Stomach and bowel: Colonic diverticulosis. PELVIS: Appendix: Appendix is either surgically absent or diminutive. Bladder: Unremarkable. Reproductive: Uterus is surgically absent. ABDOMEN and PELVIS: Intraperitoneal space: Unremarkable. Bones/joints: No acute fracture. No dislocation. Soft tissues: Unremarkable. Vasculature: Vascular calcifications. Lymph nodes: Unremarkable. IMPRESSION: 1. Question tiny calculus seen at the distal right ureter measuring up to 1 mm (201-135). No hydroureteronephrosis. Correlate with urinalysis. 2. Cirrhotic appearing liver. Low-density lesion with large area of calcification seen within hepatic segment 7 measuring up to 2.6 cm, which is nonspecific. Question area of treated HCC.
[2020-09-04] MEDS ORDERED: ACETAMINOPHEN TAB 325 MG TAB PO STA (02:07)
[2020-09-04] MEDS ORDERED: TAMSULOSIN 0.4 MG CAP.ER.24H PO STA (02:07)
[2020-09-04 02:21] VITALS: BP 154/67; PULSE 73; RESP 18
== END 2020-09-04 02:27 | disposition home or self-care (01) ==
LOC: EC 00:18
DX: N20.2 Calculus of kidney with calculus of ureter (principal); K74.60 Unspecified cirrhosis of liver; E86.0 Dehydration; M54.5 Low back pain; I10 Essential (primary) hypertension; E11.9 Type 2 diabetes mellitus without complications; K21.9 Gastro-esophageal reflux disease without esophagitis; Z79.82 Long term (current) use of aspirin; Z79.899 Other long term (current) drug therapy; Z79.84 Long term (current) use of oral hypoglycemic drugs; Z90.710 Acquired absence of both cervix and uterus; Z90.49 Acquired absence of other specified parts of digestive tract
CPT/HCPCS: 36415; 93005; 80053; 82150; 83690; 84484; 85025; 81001; 74176; 99284; 96374; J2405

== ENCOUNTER 2021-01-12 11:35 | Emergency (ER) | payer MEDICARE, BC ==
[2021-01-12 12:34] LABS: Basophils % (A) 1 %; Eosinophils # (A) 0.1 k/uL (0-0.7); Eosinophils % (A) 2 %; HCT 39.1 % (34.0-46.0); Lymphocytes # (A) 1.3 k/uL (1.0-4.8); Lymphocytes % (A) 32 %; MCH 29.4 pg (25.0-35.0); MCHC 33.1 g/dL (31.0-37.0); MCV 88.7 fL (80.0-100.0); Mean Platelet Volume 7.3; Monocytes # (A) 0.3 k/uL (0-1.0); Monocytes % (A) 7 %; Neutrophils # (A) 2.2 k/uL (1.3-7.7); Neutrophils % (A) 55 %; Platelet Count 299 k/uL (150-450); RBC 4.41 m/uL (3.80-5.40); RDW 15.2 % (11.5-15.5); WBC 3.9 k/uL (3.8-10.6)
[2021-01-12 12:38] LABS: Albumin 4.9 g/dL (3.5-5.0); Calcium 10.3 mg/dL (8.4-10.2); Magnesium 1.7 mg/dL (1.6-2.3); Potassium 4.2 mmol/L (3.5-5.1); Total Bilirubin 0.5 mg/dL (0.2-1.3); Total Protein 8.1 g/dL (6.3-8.2)
[2021-01-12 12:43] LABS: Partial Thromboplastin Time 23.4 sec (22.0-30.0); Prothrombin Time 10.8 sec (9.0-12.0)
--- NOTE | 2021-01-12 13:02 | XR ---
EXAMINATION TYPE: XR chest 2V DATE OF EXAM: 01/12/2021 COMPARISON: 02/13/2020 HISTORY: 85-year-old female with chest pain TECHNIQUE: PA and lateral views FINDINGS: Heart is borderline enlarged. As compared to 02/13/2020, interstitial changes have become more pronoun jonathan. Cholecystectomy clips. Density projecting over the right hemidiaphragm corresponds to chronic ca lcifications in the right hepatic dome. Otherwise, no consolidation or pleural effusion. IMPRESSION: Progressive interstitial changes as compared to 02/13/2020. Correlate for possible etiology such as br onchitis, chronic asthma, interstitial pneumonitis, or atypical pneumonia.
[2021-01-12 13:25] VITALS: RESP 16; TEMP 98
--- NOTE | 2021-01-12 14:13 | ED ---
General Adult HPI - General Chief complaint: Extremity Injury, Upper Stated complaint: neck pain/left arm numbness/nausea Time Seen by Provider: 01/12/21 12:51 Source: patient Mode of arrival: wheelchair Limitations: no limitations - History of Present Illness Initial comments: Patient is an 85-year-old female, with history of diabetes, hypertension, pr esenting to the emergency Department with complaints of left-sided neck tightness and some numbness into her left hand. Patient states she woke up this morning feeling tightness in her neck and throughout the day started developing the numbness in her left arm. She told her daughter about her symptoms and they checked her blood pressure which was really high at home, 180s over 170 came in to the ER for evaluation. Patient denies any chest pain, no headache, no blurry vision. She does admit to some mild nausea but states she gets that way when her sugars have been elevated. Patient states her doctor just put her on a new medication because her sugars have been running in the 200s. She denies any fevers, no chills. She denies any shortness of breath. She denies any vomiting or diarrhea. She has no further complaints at this time. Upon arrival to the ER, her vital signs are stable, BP is 169/85. - Related Data Home Medications Medication Instructions Recorded Confirmed Aspirin EC [Ecotrin Low Dose] 81 mg PO DAILY 02/13/20 01/12/21 Biotin 5 mg PO DAILY 02/13/20 01/12/21 Cinnamon Bark [Cinnamon] 1,000 mg PO DAILY 02/13/20 01/12/21 Cranberry Fruit Concentrate [Azo 250 mg PO DAILY@1200 02/13/20 01/12/21 Cranberry] Cyanocobalamin (Vitamin B-12) 5,000 mcg PO DAILY 02/13/20 01/12/21 [Vitamin B-12] Magnesium 250 mg PO BID 02/13/20 01/12/21 [place]-3 Fatty Acids/Fish Oil [Fish 1 cap PO DAILY 02/13/20 01/12/21 Oil 1,000 mg Softgel] Pioglitazone [Actos] 45 mg PO DAILY 02/13/20 01/12/21 Ubidecarenone [Co Q-10] 400 mg PO DAILY@1200 02/13/20 01/12/21 metFORMIN HCL 1,000 mg PO BID 02/13/20 01/12/21 Acarbose [Precose] 50 mg PO W/SUPPER 01/12/21 01/12/21 Atorvastatin [Lipitor] 20 mg PO HS 01/12/21 01/12/21 Cholecalciferol (Vitamin D3) 125 mcg PO DAILY 01/12/21 01/12/21 [Vitamin D3 (5000 Iu)] Lisinopril-Hctz 20-25 mg 1 tab PO DAILY 01/12/21 01/12/21 [Zestoretic 20-25] Methylsulfonylmethane [MSM] 900 mg PO DAILY 01/12/21 01/12/21 Montelukast Sodium [Singulair] 10 mg PO HS 01/12/21 01/12/21 amLODIPine [Norvasc] 5 mg PO HS 01/12/21 01/12/21 Allergies Allergy/AdvReac Type Severity Reaction Status Date / Time No Known Allergies Allergy Verified 01/12/21 13:58 Review of Systems ROS Statement: Those systems with pertinent positive or pertinent negative responses have been documented in the HPI. ROS Other: All systems not noted in ROS Statement are negative. 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 Patient is nontoxic and in no acute distress. HEAD: Atraumatic, normocephalic. EYES: Pupils equal round and reactive to light, extraocular movements intact, sclera anicteric, conjunctiva are normal. Eyelids were unremarkable. ENT: TMs normal, nares patent, oropharynx clear without exudates. Moist mucous membranes. NECK: Normal range of motion, supple without lymphadenopathy or JVD. patient has tenderness with palpation of the left cervical paraspinals, there is muscle spasm present. LUNGS: Unlabored respirations. Breath sounds clear to auscultation bilaterally and equal. No wheezes rales or rhonchi. HEART: Regular rate and rhythm without murmurs, rubs or gallops. ABDOMEN: Soft, nontender, normoactive bowel sounds. No guarding, no rebound. No masses appreciated. : Deferred MUSCULOSKELETAL: Normal extremities with adequate strength and normal range of motion, no pitting or edema. No clubbing or cyanosis. positive impingement sign the left shoulder. NEUROLOGICAL: Patient is alert and oriented x 3. Motor and sensory are also intact. Cranial nerves II through XII grossly intact. Symmetrical smile. Normal speech, normal gait. PSYCH: Normal mood, normal affect. SKIN: Warm, Dry, normal turgor, no rashes or lesions noted. Limitations: no limitations Course Vital Signs 01/12/21 01/12/21 01/12/21 11:42 13:23 14:38 Temperature 97.5 F L 98.0 F 98.0 F Pulse Rate 78 65 62 Respiratory 18 16 16 Rate Blood Pressure 169/85 144/73 130/77 O2 Sat by Pulse 99 97 96 Oximetry EKG Findings - EKG Comments: EKG Findings:: EKG read A. fib, R BBB, bifascicular block, this is similar to previous EKG on 09/04/2020. Ventricular rate 62, QRS duration 158, QTC 420. Medical Decision Making - Medical Decision Making patient is an 85-year-old female history of hypertension, heart disease, presenting for left cervical pain as well as tingling into her left hand since she woke up this morning. No chest pain, no shortness of breath, no fevers. Her vital signs show slight hypertension, otherwise normal. EKG shows no acute process, similar to previous EKGs. Chest x-ray within normal limits, blood work is unremarkable, troponin is negative. Patient's exam is consistent with a mild left cervical strain, muscle spasm. Like her symptoms are cardiac related at this time. I did recommend following up with her PCP. She can use heat on the area, gentle stretching, gentle massage. Return parameters were discussed with the patient and she verbalized understanding. She is in agreement with this plan of care. Case discussed with Dr. Woodson. - Lab Data Result diagrams: 01/12/21 11:49 01/12/21 11:49 Lab Results 01/12/21 01/12/21 01/12/21 Range/Units 11:49 11:49 11:49 WBC 3.9 (3.8-10.6) k/uL RBC 4.41 (3.80-5.40) m/uL Hgb 13.0 (11.4-16.0) gm/dL Hct 39.1 (34.0-46.0) % MCV 88.7 (80.0-100.0) fL MCH 29.4 (25.0-35.0) pg MCHC 33.1 (31.0-37.0) g/dL RDW 15.2 (11.5-15.5) % Plt Count 299 (150-450) k/uL MPV 7.3 Neutrophils % 55 % Lymphocytes % 32 % Monocytes % 7 % Eosinophils % 2 % Basophils % 1 % Neutrophils # 2.2 (1.3-7.7) k/uL Lymphocytes # 1.3 (1.0-4.8) k/uL Monocytes # 0.3 (0-1.0) k/uL Eosinophils # 0.1 (0-0.7) k/uL Basophils # 0.0 (0-0.2) k/uL PT 10.8 (9.0-12.0) sec INR 1.0 (<1.2) APTT 23.4 (22.0-30.0) sec Sodium 133 L (137-145) mmol/L Potassium 4.2 (3.5-5.1) mmol/L Chloride 98 (98-107) mmol/L Carbon Dioxide 23 (22-30) mmol/L Anion Gap 12 mmol/L BUN 21 H (7-17) mg/dL Creatinine 0.98 (0.52-1.04) mg/dL Est GFR (CKD-EPI)AfAm 61 (>60 ml/min/1.73 sqM) Est GFR (CKD-EPI)NonAf 53 (>60 ml/min/1.73 sqM) Glucose 274 H (74-99) mg/dL Calcium 10.3 H (8.4-10.2) mg/dL Magnesium 1.7 (1.6-2.3) mg/dL Total Bilirubin 0.5 (0.2-1.3) mg/dL AST 30 (14-36) U/L ALT 20 (4-34) U/L Alkaline Phosphatase 65 (38-126) U/L Troponin I (0.000-0.034) ng/mL Total Protein 8.1 (6.3-8.2) g/dL Albumin 4.9 (3.5-5.0) g/dL 01/12/21 Range/Units 11:49 WBC (3.8-10.6) k/uL RBC (3.80-5.40) m/uL Hgb (11.4-16.0) gm/dL Hct (34.0-46.0) % MCV (80.0-100.0) fL MCH (25.0-35.0) pg MCHC (31.0-37.0) g/dL RDW (11.5-15.5) % Plt Count (150-450) k/uL MPV Neutrophils % % Lymphocytes % % Monocytes % % Eosinophils % % Basophils % % Neutrophils # (1.3-7.7) k/uL Lymphocytes # (1.0-4.8) k/uL Monocytes # (0-1.0) k/uL Eosinophils # (0-0.7) k/uL Basophils # (0-0.2) k/uL PT (9.0-12.0) sec INR (<1.2) APTT (22.0-30.0) sec Sodium (137-145) mmol/L Potassium (3.5-5.1) mmol/L Chloride (98-107) mmol/L Carbon Dioxide (22-30) mmol/L Anion Gap mmol/L BUN (7-17) mg/dL Creatinine (0.52-1.04) mg/dL Est GFR (CKD-EPI)AfAm (>60 ml/min/1.73 sqM) Est GFR (CKD-EPI)NonAf (>60 ml/min/1.73 sqM) Glucose (74-99) mg/dL Calcium (8.4-10.2) mg/dL Magnesium (1.6-2.3) mg/dL Total Bilirubin (0.2-1.3) mg/dL AST (14-36) U/L ALT (4-34) U/L Alkaline Phosphatase (38-126) U/L Troponin I <0.012 (0.000-0.034) ng/mL Total Protein (6.3-8.2) g/dL Albumin (3.5-5.0) g/dL Disposition Clinical Impression: Strain of cervical portion of left trapezius muscle, Muscle tightness Disposition: HOME SELF-CARE Condition: Stable Instructions (If sedation given, give patient instructions): Cervical Strain (ED) Additional Instructions: Please return to the Emergency Department if symptoms worsen or any other concerns. Recommend heat to the area, gentle stretching, gentle massage. Follow-up with your primary care physician. Is patient prescribed a controlled substance at d/c from ED?: No Referrals: Janelle Morales DO [Primary Care Provider] - 1-2 days Time of Disposition: 14:28
[2021-01-12 14:40] VITALS: BP 130/77; PULSE 62
== END 2021-01-12 14:38 | disposition home or self-care (01) ==
LOC: EC 11:35
DX: S16.1XXA Strain of muscle, fascia and tendon at neck level, initial encounter (principal); S46.812A Strain of other muscles, fascia and tendons at shoulder and upper arm level, left arm, initial encounter; E11.9 Type 2 diabetes mellitus without complications; I10 Essential (primary) hypertension; K21.9 Gastro-esophageal reflux disease without esophagitis; Z79.82 Long term (current) use of aspirin; Z79.84 Long term (current) use of oral hypoglycemic drugs; Z79.899 Other long term (current) drug therapy
CPT/HCPCS: 36415; 71046; 80053; 83735; 84484; 85025; 85610; 85730; 93005; 99284

== ENCOUNTER 2023-03-29 23:58 | Emergency (ER) | payer MEDICARE, BC ==
[2023-03-30] MEDS ORDERED: SODIUM CHLORIDE 0.9% 1,000 ML IV STA (00:47)
--- NOTE | 2023-03-30 00:48 | ED ---
Dizziness HPI - General Chief Complaint: Dizziness Stated Complaint: Dizziness, nausea Time Seen by Provider: 03/30/23 00:38 Source: patient, RN notes reviewed, old records reviewed, Caregiver Mode of arrival: EMS Limitations: no limitations - History of Present Illness Initial Comments: This is a 87-year-old female to the emergency department today for evaluation of dizziness. Patient feels very unsteady in her feet nausea with vomiting. Room is spinning around especially with any slight movement. Room is spinning around especially with ambulation, patient states even during ambulation she is very off balance. No history of stroke no history of CVA no history of TIA no history of cardiac or coronary artery disease MD Complaint: dizziness, difficulty walking -: hour(s) Timing: gradual onset, intermittent Description: sense of movement, "room spinning", off-balance, difficulty walking, nausea History of Same: No History of Trauma: No Severity: severe Improves With: remaining still Worsens With: movement, position Associated Symptoms: ataxia - Related Data Home Medications Medication Instructions Recorded Confirmed Aspirin EC [Ecotrin Low Dose] 81 mg PO DAILY 02/13/20 01/12/21 Biotin 5 mg PO DAILY 02/13/20 01/12/21 Cinnamon Bark [Cinnamon] 1,000 mg PO DAILY 02/13/20 01/12/21 Cranberry Fruit Concentrate [Azo 250 mg PO DAILY@1200 02/13/20 01/12/21 Cranberry] Cyanocobalamin (Vitamin B-12) 5,000 mcg PO DAILY 02/13/20 01/12/21 [Vitamin B-12] Magnesium 250 mg PO BID 02/13/20 01/12/21 [place]-3 Fatty Acids/Fish Oil [Fish 1 cap PO DAILY 02/13/20 01/12/21 Oil 1,000 mg Softgel] Pioglitazone [Actos] 45 mg PO DAILY 02/13/20 01/12/21 Ubidecarenone [Co Q-10] 400 mg PO DAILY@1200 02/13/20 01/12/21 metFORMIN HCL [Glucophage] 1,000 mg PO BID 02/13/20 01/12/21 Acarbose [Precose] 50 mg PO W/SUPPER 01/12/21 01/12/21 Atorvastatin [Lipitor] 20 mg PO HS 01/12/21 01/12/21 Cholecalciferol (Vitamin D3) 125 mcg PO DAILY 01/12/21 01/12/21 [Vitamin D3 (5000 Iu)] Lisinopril-Hctz 20-25 mg 1 tab PO DAILY 01/12/21 01/12/21 [Zestoretic 20-25] Methylsulfonylmethane [MSM] 900 mg PO DAILY 01/12/21 01/12/21 Montelukast Sodium [Singulair] 10 mg PO HS 01/12/21 01/12/21 amLODIPine [Norvasc] 5 mg PO HS 01/12/21 01/12/21 Allergies Allergy/AdvReac Type Severity Reaction Status Date / Time No Known Allergies Allergy Verified 01/12/21 13:58 Review of Systems ROS Statement: Those systems with pertinent positive or pertinent negative responses have been documented in the HPI. ROS Other: All systems not noted in ROS Statement are negative. 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, covid positive 10/30/2020, History of Any Multi-Drug Resistant Organisms: None Reported Past Surgical History: Cholecystectomy, Hysterectomy Additional Past Surgical History / Comment(s): eye, Past Anesthesia/Blood Transfusion Reactions: No Reported Reaction Past Psychological History: No Psychological Hx Reported Smoking Status: Never smoker Past Alcohol Use History: None Reported Past Drug Use History: None Reported - Past Family History Sister(s) Family Medical History: Cancer General Exam Limitations: no limitations General appearance: alert, in no apparent distress Head exam: Present: atraumatic, normocephalic, normal inspection Eye exam: Present: normal appearance, PERRL, EOMI. Absent: scleral icterus, conjunctival injection, periorbital swelling ENT exam: Present: normal exam, mucous membranes moist Neck exam: Present: normal inspection. Absent: tenderness, meningismus, lymphadenopathy Respiratory exam: Present: normal lung sounds bilaterally. Absent: respiratory distress, wheezes, rales, rhonchi, stridor Cardiovascular Exam: Present: regular rate, normal rhythm, normal heart sounds. Absent: systolic murmur, diastolic murmur, rubs, gallop, clicks GI/Abdominal exam: Present: soft, normal bowel sounds. Absent: distended, tenderness, guarding, rebound, rigid Extremities exam: Present: normal inspection, full ROM, normal capillary refill. Absent: tenderness, pedal edema, joint swelling, calf tenderness Back exam: Present: normal inspection Neurological exam: Present: alert, oriented X3, CN II-XII intact Psychiatric exam: Present: normal affect, normal mood Skin exam: Present: warm, dry, intact, normal color. Absent: rash Course Vital Signs 03/30/23 04:48 Temperature 97.8 F Pulse Rate 66 Respiratory 18 Rate Blood Pressure 158/64 O2 Sat by Pulse 96 Oximetry - Reevaluation(s) Reevaluation #1: 03/30/23 02:31 Records reviewed Reevaluation #2: Patient symptoms are resolved Reevaluation #3: Patient informed results and questions answered Reevaluation #4: 03/30/23 02:31 Was pt. sent in by a medical professional or institution? @ -no Did you speak to anyone other than the patient for history? @ -no Did you review nursing and triage notes? @ -agree Were old charts reviewed? @ -yes Differential Diagnosis? @ -prior EKG interpreted by me (3pts min.)? @ -yes X-rays interpreted by me (1pt min.)? @ -no CT interpreted by me (1pt min.)? @ -yes U/S interpreted by me (1pt. min.)? @ -no What testing was considered but not performed? (CT, X-rays, U/S, labs)? Why? @ -no What meds were considered but not given? Why? @ -no Did you discuss the management of the patient with other professionals? @ -no Did you reconcile home meds? @ -no Was smoking cessation discussed for >3mins.? @ -no Was critical care preformed (if so, how long)? @ -no Were there social determinants of health that impacted care today? How? (Homelessness, low income, unemployed, alcoholism, drug addiction, transportation, low edu. Level, literacy, decrease access to med. care, intermediate, rehab)? @ -no Was there de-escalation of care discussed even if they declined? (Discuss DNR or withdrawal of care, Hospice)? @ -no What co-morbidities impacted this encounter? (DM, HTN, Smoking, COPD, CAD, Cancer, CVA, Hep., AIDS, mental health diagnosis, sleep apnea, morbid obesity)? @ -none Was patient admitted / discharged? @ -87 female to the emergency department for dizziness and her dizziness his improved. Patient's able to ambulate walk without ataxia. Patient can be disc harged home Discharge Undiagnosed new problem with uncertain prognosis? @ -no Drug Therapy requiring intensive monitoring for toxicity (Heparin, Nitro, Insulin, Cardizem)? @ -no Were any procedures done? @ -no Diagnosis/symptom? @ -Vertigo, dizziness Acute, or Chronic, or Acute on Chronic? @ -acute Uncomplicated (without systemic symptoms) or Complicated (systemic symptoms)? @ -complicated Side effects of treatment? @ -no Exacerbation, Progression, or Severe Exacerbation] @ -no Poses a threat to life or bodily function? @ -yes if vertigo with caused by CVA or subarachnoid hemorrhage Reevaluation #5: 03/30/23 02:31 Differential Dizziness: Benign paroxysmal positional Vertigo, Menieres disease, otitis media, acoustic neuroma, vertebrobasilar insufficiency, cerebellar stroke, encephalitis, hypovolemic, arrhythmia, coronary artery syndrome, anemia, this is not meant to be an all-inclusive list EKG Findings - EKG Comments: EKG Findings:: EKG answered rhythm of 67 QRS 165 QTc 459 - EKG Results: EKG: interpreted by JOSE CARLOS Medical Decision Making - Medical Decision Making 87 female to the emergency department for dizziness and her dizziness his improved. Patient's able to ambulate walk without ataxia. Patient can be discharged home - Lab Data Result diagrams: 03/30/23 00:50 03/30/23 00:50 Lab Results 03/30/23 03/30/23 03/30/23 Range/Units 00:50 00:50 00:50 WBC 4.2 (3.8-10.6) k/uL RBC 3.81 (3.80-5.40) m/uL Hgb 11.6 (11.4-16.0) gm/dL Hct 35.8 (34.0-46.0) % MCV 94.1 (80.0-100.0) fL MCH 30.4 (25.0-35.0) pg MCHC 32.3 (31.0-37.0) g/dL RDW 13.7 (11.5-15.5) % Plt Count 270 (150-450) k/uL MPV 7.7 Neutrophils % 53 % Lymphocytes % 32 % Monocytes % 9 % Eosinophils % 3 % Basophils % 0 % Neutrophils # 2.2 (1.3-7.7) k/uL Lymphocytes # 1.3 (1.0-4.8) k/uL Monocytes # 0.4 (0-1.0) k/uL Eosinophils # 0.1 (0-0.7) k/uL Basophils # 0.0 (0-0.2) k/uL PT 10.5 (9.0-12.0) sec INR 1.0 (<1.2) APTT 22.2 (22.0-30.0) sec Sodium 134 L (137-145) mmol/L Potassium 3.9 (3.5-5.1) mmol/L Chloride 102 (98-107) mmol/L Carbon Dioxide 23 (22-30) mmol/L Anion Gap 9 mmol/L BUN 25 H (7-17) mg/dL Creatinine 0.87 (0.52-1.04) mg/dL Est GFR (CKD-EPI)AfAm 70 (>60 ml/min/1.73 sqM) Est GFR (CKD-EPI)NonAf 61 (>60 ml/min/1.73 sqM) Glucose 163 H (74-99) mg/dL Plasma Lactic Acid Ren (0.7-2.0) mmol/L Calcium 9.6 (8.4-10.2) mg/dL Phosphorus 3.5 (2.5-4.5) mg/dL Magnesium 1.7 (1.6-2.3) mg/dL Total Bilirubin 0.2 (0.2-1.3) mg/dL AST 22 (14-36) U/L ALT 19 (4-34) U/L Alkaline Phosphatase 61 (38-126) U/L Troponin I (0.000-0.034) ng/mL NT-Pro-B Natriuret Pep pg/mL Total Protein 6.8 (6.3-8.2) g/dL Albumin 4.1 (3.5-5.0) g/dL 03/30/23 03/30/23 03/30/23 Range/Units 00:50 00:50 00:50 WBC (3.8-10.6) k/uL RBC (3.80-5.40) m/uL Hgb (11.4-16.0) gm/dL Hct (34.0-46.0) % MCV (80.0-100.0) fL MCH (25.0-35.0) pg MCHC (31.0-37.0) g/dL RDW (11.5-15.5) % Plt Count (150-450) k/uL MPV Neutrophils % % Lymphocytes % % Monocytes % % Eosinophils % % Basophils % % Neutrophils # (1.3-7.7) k/uL Lymphocytes # (1.0-4.8) k/uL Monocytes # (0-1.0) k/uL Eosinophils # (0-0.7) k/uL Basophils # (0-0.2) k/uL PT (9.0-12.0) sec INR (<1.2) APTT (22.0-30.0) sec Sodium (137-145) mmol/L Potassium (3.5-5.1) mmol/L Chloride (98-107) mmol/L Carbon Dioxide (22-30) mmol/L Anion Gap mmol/L BUN (7-17) mg/dL Creatinine (0.52-1.04) mg/dL Est GFR (CKD-EPI)AfAm (>60 ml/min/1.73 sqM) Est GFR (CKD-EPI)NonAf (>60 ml/min/1.73 sqM) Glucose (74-99) mg/dL Plasma Lactic Acid Ren 1.7 (0.7-2.0) mmol/L Calcium (8.4-10.2) mg/dL Phosphorus (2.5-4.5) mg/dL Magnesium (1.6-2.3) mg/dL Total Bilirubin (0.2-1.3) mg/dL AST (14-36) U/L ALT (4-34) U/L Alkaline Phosphatase (38-126) U/L Troponin I <0.012 (0.000-0.034) ng/mL NT-Pro-B Natriuret Pep 199 pg/mL Total Protein (6.3-8.2) g/dL Albumin (3.5-5.0) g/dL - EKG Data -: EKG Interpreted by Me - Radiology Data Radiology results: report reviewed (CT brain is negative for acute disease), image reviewed Disposition Clinical Impression: Benign paroxysmal positional vertigo, Near syncope, Vertigo, Dizziness Disposition: HOME SELF-CARE Condition: Good Instructions (If sedation given, give patient instructions): Vertigo (ED), Benign Paroxysmal Positional Vertigo (ED) Is patient prescribed a controlled substance at d/c from ED?: No Referrals: Nonstaff,Physician [REFERRING] - 1-2 days Time of Disposition: 04:20
[2023-03-30 01:33] LABS: Basophils % (A) 0 %; Eosinophils # (A) 0.1 k/uL (0-0.7); Eosinophils % (A) 3 %; HCT 35.8 % (34.0-46.0); HGB 11.6 gm/dL (11.4-16.0); Lymphocytes # (A) 1.3 k/uL (1.0-4.8); Lymphocytes % (A) 32 %; MCH 30.4 pg (25.0-35.0); MCHC 32.3 g/dL (31.0-37.0); MCV 94.1 fL (80.0-100.0); Mean Platelet Volume 7.7; Monocytes # (A) 0.4 k/uL (0-1.0); Monocytes % (A) 9 %; Neutrophils # (A) 2.2 k/uL (1.3-7.7); Neutrophils % (A) 53 %; Platelet Count 270 k/uL (150-450); RBC 3.81 m/uL (3.80-5.40); RDW 13.7 % (11.5-15.5); WBC 4.2 k/uL (3.8-10.6)
[2023-03-30 01:36] LABS: ALT 19 U/L (4-34); AST 22 U/L (14-36); African American GFR (CKD) 70 (>60 ml/min/1.73 sqM); Albumin 4.1 g/dL (3.5-5.0); Alkaline Phosphatase 61 U/L (38-126); Anion Gap 9 mmol/L; Blood Urea Nitrogen 25 mg/dL (7-17); Calcium 9.6 mg/dL (8.4-10.2); Carbon Dioxide 23 mmol/L (22-30); Chloride 102 mmol/L (98-107); Glucose 163 mg/dL (74-99); Magnesium 1.7 mg/dL (1.6-2.3); Non-African American GFR(CKD) 61 (>60 ml/min/1.73 sqM); Phosphorus 3.5 mg/dL (2.5-4.5); Potassium 3.9 mmol/L (3.5-5.1); Sodium 134 mmol/L (137-145); Total Bilirubin 0.2 mg/dL (0.2-1.3); Total Protein 6.8 g/dL (6.3-8.2)
[2023-03-30 02:14] LABS: Partial Thromboplastin Time 22.2 sec (22.0-30.0); Prothrombin Time 10.5 sec (9.0-12.0)
--- NOTE | 2023-03-30 02:49 | CT ---
EXAM: CT Head Without Intravenous Contrast CLINICAL HISTORY: ITS.REASON CT Reason: weakness TECHNIQUE: Axial computed tomography images of the head/brain without intravenous contrast. CTDI is 49 mGy and DLP is 1184 mGy-cm. This CT exam was performed using one or more of the following dose reduction techniques: automated exposure control, adjustment of the mA and/or kV according to patient size, and/or use of iterative reconstruction technique. COMPARISON: No relevant prior studies available. FINDINGS: Brain: No hemorrhage, herniation, or mass effect. Chronic microvascular ischemic changes. Ventricles: No hydrocephalus. Age related cerebral volume loss. Bones/joints: Unremarkable. Soft tissues: Unremarkable. Sinuses: Unremarkable. Mastoid air cells: Clear. IMPRESSION: No acute hemorrhage, hydrocephalus, or mass effect.
[2023-03-30 04:58] VITALS: BP 158/64; PULSE 66; RESP 18; TEMP 97.8
== END 2023-03-30 04:59 | disposition home or self-care (01) ==
LOC: EC 23:58
DX: H81.10 Benign paroxysmal vertigo, unspecified ear (principal); R55 Syncope and collapse; E11.9 Type 2 diabetes mellitus without complications; I10 Essential (primary) hypertension; K21.9 Gastro-esophageal reflux disease without esophagitis; Z79.82 Long term (current) use of aspirin; Z79.84 Long term (current) use of oral hypoglycemic drugs; Z79.899 Other long term (current) drug therapy
CPT/HCPCS: 36415; 70450; 80053; 83605; 83735; 83880; 84100; 84484; 85025; 85610; 85730; 93005; 96360; 99285

== ENCOUNTER 2024-02-20 21:13 | Emergency (ER) | payer BC, MEDICARE ==
--- NOTE | 2024-02-20 21:54 | ED ---
Chest Pain HPI - General Chief Complaint: Chest Pain Stated Complaint: Chest Pain,Abd Pain Time Seen by Provider: 02/20/24 21:48 Source: patient, RN notes reviewed, old records reviewed Mode of arrival: wheelchair Limitations: no limitations - History of Present Illness Initial Comments: This is an 88-year-old female presenting with heart pain chest pain back pain abdominal pain shortness of breath some underlying anxiety with history limited by patient's condition, patient has no significant symptoms here in the ER she does admit to severe anxiety prior to coming to the hospital MD Complaint: chest pain -: days(s) Onset: during rest, during exertion Pain Location: substernal Pain Radiation: none Severity: moderate Severity scale (1-10): 4 Quality: aching Consistency: constant, now resolved Improves With: nothing Worsens With: nothing Context: recent illness Anginal Symptoms: sense of impending doom Other Symptoms: palpitations Treatments Prior to Arrival: none - Related Data On Oral Contraceptives: No Home Medications Medication Instructions Recorded Confirmed Aspirin EC [Ecotrin Low Dose] 81 mg PO DAILY 02/13/20 01/12/21 Biotin 5 mg PO DAILY 02/13/20 01/12/21 Cinnamon Bark [Cinnamon] 1,000 mg PO DAILY 02/13/20 01/12/21 Cranberry Fruit Concentrate [Azo 250 mg PO DAILY@1200 02/13/20 01/12/21 Cranberry] Cyanocobalamin (Vitamin B-12) 5,000 mcg PO DAILY 02/13/20 01/12/21 [Vitamin B-12] Magnesium 250 mg PO BID 02/13/20 01/12/21 [place]-3 Fatty Acids/Fish Oil [Fish 1 cap PO DAILY 02/13/20 01/12/21 Oil 1,000 mg Softgel] Pioglitazone [Actos] 45 mg PO DAILY 02/13/20 01/12/21 Ubidecarenone [Co Q-10] 400 mg PO DAILY@1200 02/13/20 01/12/21 metFORMIN HCL [Glucophage] 1,000 mg PO BID 02/13/20 01/12/21 Acarbose [Precose] 50 mg PO W/SUPPER 01/12/21 01/12/21 Atorvastatin [Lipitor] 20 mg PO HS 01/12/21 01/12/21 Cholecalciferol (Vitamin D3) 125 mcg PO DAILY 01/12/21 01/12/21 [Vitamin D3 (5000 Iu)] Lisinopril-Hctz 20-25 mg 1 tab PO DAILY 01/12/21 01/12/21 [Zestoretic 20-25] Methylsulfonylmethane [MSM] 900 mg PO DAILY 01/12/21 01/12/21 Montelukast Sodium [Singulair] 10 mg PO HS 01/12/21 01/12/21 amLODIPine [Norvasc] 5 mg PO HS 01/12/21 01/12/21 Previous Rx's Medication Instructions Recorded Cephalexin [Keflex] 500 mg PO Q6HR #20 cap 02/20/24 Allergies Allergy/AdvReac Type Severity Reaction Status Date / Time No Known Allergies Allergy Verified 02/20/24 21:44 Review of Systems ROS Statement: Those systems with pertinent positive or pertinent negative responses have been documented in the HPI. ROS Other: All systems not noted in ROS Statement are negative. 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, covid positive 10/30/2020, History of Any Multi-Drug Resistant Organisms: None Reported Past Surgical History: Cholecystectomy, Hysterectomy Additional Past Surgical History / Comment(s): eye, Past Anesthesia/Blood Transfusion Reactions: No Reported Reaction Past Psychological History: No Psychological Hx Reported Smoking Status: Never smoker Past Alcohol Use History: None Reported Past Drug Use History: None Reported - Past Family History Sister(s) Family Medical History: Cancer General Exam Limitations: no limitations General appearance: alert, in no apparent distress, anxious Head exam: Present: atraumatic, normocephalic, normal inspection Eye exam: Present: normal appearance, PERRL, EOMI. Absent: scleral icterus, conjunctival injection, periorbital swelling ENT exam: Present: normal exam, mucous membranes moist Neck exam: Present: normal inspection. Absent: tenderness, meningismus, lymphadenopathy Respiratory exam: Present: normal lung sounds bilaterally. Absent: respiratory distress, wheezes, rales, rhonchi, stridor Cardiovascular Exam: Present: regular rate, normal rhythm, normal heart sounds. Absent: systolic murmur, diastolic murmur, rubs, gallop, clicks GI/Abdominal exam: Present: soft, normal bowel sounds. Absent: distended, tenderness, guarding, rebound, rigid Extremities exam: Present: normal inspection, full ROM, normal capillary refill. Absent: tenderness, pedal edema, joint swelling, calf tenderness Back exam: Present: normal inspection Neurological exam: Present: alert, oriented X3, CN II-XII intact Psychiatric exam: Present: normal affect, normal mood Skin exam: Present: warm, dry, intact, normal color. Absent: rash Course Vital Signs 02/20/24 02/20/24 02/20/24 21:41 22:52 23:26 Temperature 99.6 F Pulse Rate 95 71 88 Respiratory 20 18 18 Rate Blood Pressure 164/80 164/71 174/79 O2 Sat by Pulse 96 97 95 Oximetry 02/20/24 23:50 Temperature Pulse Rate 75 Respiratory 17 Rate Blood Pressure 149/69 O2 Sat by Pulse 95 Oximetry - Reevaluation(s) Reevaluation #1: Medical records reviewed Reevaluation #2: Patient symptoms unchanged Reevaluation #3: Patient informed of results questions answered Reevaluation #4: Was pt. sent in by a medical professional or institution (, PA, CONSUMER LOAN SPECIALIST, urgent care, hospital, or half-way...) When possible be specific @ -no Did you speak to anyone other than the patient for history (EMS, parent, family, police, friend...)? What history was obtained from this source @ -no Did you review nursing and triage notes (agree or disagree)? Why? @ -agree Are old charts reviewed (outside hosp., previous admission, EMS record, old EKG, old radiological studies, urgent care reports/EKG's, half-way records)? Report findings @ -yes Differential Diagnosis (chest pain, altered mental status, abdominal pain women, abdominal pain men, vaginal bleeding, weakness, fever, dyspnea, syncope, headache, dizziness, GI bleed, back pain, seizure, CVA, palpatations, mental health, musculoskeletal)? @ -prior EKG interpreted by me (3pts min.). @ -yes X-rays interpreted by me (1pt min.). @ -no CT interpreted by me (1pt min.). @ -no U/S interpreted by me (1pt. min.). @ -no What testing was considered but not performed or refused? (CT, X-rays, U/S, labs)? Why? @ -none What meds were considered but not given or refused? Why? @ -none Did you discuss the management of the patient with other professionals (professionals i.e. DrOmar, PA, CONSUMER LOAN SPECIALIST, lab, RT, psych nurse, sr. social media & mobile manager, director business development, teacher, supply requirements officer, case reviewer)? Give summary @ -no Was smoking cessation discussed for >3mins.? @ -no Were there social determinants of health that impacted care today? How? (Homelessness, low income, unemployed, alcoholism, drug addiction, transportation, low edu. Level, literacy, decrease access to med. care, [facility], rehab)? @ -none Was there de-escalation of care discussed even if they declined (Discuss DNR or withdrawal of care, Hospice)? DNR status @ -no What co-morbidities impacted this encounter? (DM, HTN, Smoking, COPD, CAD, Cancer, CVA, ARF, Chemo, Hep., AIDS, mental health diagnosis, sleep apnea, morbid obesity)? @ -none Was patient admitted / discharged? Hospital course, mention meds given and route, prescriptions, significant lab abnormalities, going to OR and other pertinent info. @ - 88 female found to have urinary tract infection here in the ER, no other acute symptoms are found. Patient is improved and can be discharged home Discharge Was critical care preformed (if so, how long)? @ -no Undiagnosed new problem with uncertain prognosis? @ -no Drug Therapy requiring intensive monitoring for toxicity (Heparin, Nitro, Insulin, Cardizem)? @ -no Were any procedures done? @ -no Diagnosis/symptom? @ - Acute, or Chronic, or Acute on Chronic? @ -Acute Uncomplicated (without systemic symptoms) or Complicated (systemic symptoms)? @ -Complicated Side effects of treatment? @ -no Exacerbation, Progression, or Severe Exacerbation? @ -exacerbation Poses a threat to life or bodily function? How? (Chest pain, [place], OR, pneumonia, PE, COPD, DKA, ARF, appy, cholecystitis, CVA, Diverticulitis, Homicidal, Suicidal, threat to staff... and all critical care pts) @ -yes extremies of age UTI Reevaluation #5: Differential Chest Pain: Stable Angina, Unstable Angina, STEMI, NSTEMI Aortic Dissection, Pneumothorax, Musculoskeletal, Esophageal Spasm GERD, Cholecystitis, Pancreatitis, Zoster, this is not meant to be an all-inclusive list. Differential Abdominal Pain Women: Appendicitis, Cholecystitis, diverticulosis, ischemic bowel, pancreatitis, hepat itis, UTI, gastroenteritis, AAA, incarcerated hernia, bowel obstruction, constipation, inflammatory bowel, hepatitis, peptic ulcer disease, splenic infarction, perforated viscus, vulvitis, ovarian torsion, PID, kidney stone, placenta abruption, this is not meant to be an all-inclusive list Chest Pain MDM - MDM 88 female found to have urinary tract infection here in the ER, no other acute symptoms are found. Patient is improved and can be discharged home Disposition Clinical Impression: UTI (urinary tract infection) Disposition: HOME SELF-CARE Condition: Good Instructions (If sedation given, give patient instructions): Urinary Tract Infection in Women (ED) Prescriptions: Cephalexin [Keflex] 500 mg PO Q6HR #20 cap Is patient prescribed a controlled substance at d/c from ED?: No Referrals: Janelle Morales DO [Primary Care Provider] - 1-2 days Time of Disposition: 23:30
[2024-02-20 22:27] VITALS: TEMP 99.6
[2024-02-20 22:36] LABS: Basophils % (A) 0 %; Eosinophils # (A) 0.1 k/uL (0-0.7); Eosinophils % (A) 2 %; HCT 42.3 % (34.0-46.0); HGB 13.5 gm/dL (11.4-16.0); Lymphocytes # (A) 1.3 k/uL (1.0-4.8); Lymphocytes % (A) 22 %; MCH 29.6 pg (25.0-35.0); MCHC 31.9 g/dL (31.0-37.0); MCV 92.6 fL (80.0-100.0); Mean Platelet Volume 7.9; Monocytes # (A) 0.4 k/uL (0-1.0); Monocytes % (A) 6 %; Neutrophils # (A) 4.1 k/uL (1.3-7.7); Neutrophils % (A) 68 %; Platelet Count 337 k/uL (150-450); RBC 4.56 m/uL (3.80-5.40); WBC 6.1 k/uL (3.8-10.6)
[2024-02-20] MEDS: SODIUM CHLORIDE 0.9% 1,000 ML IV STA (22:40)
[2024-02-20] MEDS: KETOROLAC 15 MG/ML 1 ML VIAL IVP STA (22:46)
[2024-02-20 22:54] LABS: ALT 20 U/L (4-34); AST 25 U/L (14-36); African American GFR (CKD) 54 (>60 ml/min/1.73 sqM); Alkaline Phosphatase 77 U/L (38-126); Anion Gap 12 mmol/L; Blood Urea Nitrogen 17 mg/dL (7-17); Calcium 10.2 mg/dL (8.4-10.2); Carbon Dioxide 21 mmol/L (22-30); Chloride 99 mmol/L (98-107); Glucose 228 mg/dL (74-99); Lipase 168 U/L (23-300); Magnesium 1.7 mg/dL (1.6-2.3); Non-African American GFR(CKD) 47 (>60 ml/min/1.73 sqM); Phosphorus 3.4 mg/dL (2.5-4.5); Potassium 4.2 mmol/L (3.5-5.1); Sodium 132 mmol/L (137-145); Total Bilirubin 0.4 mg/dL (0.2-1.3)
[2024-02-20 22:55] LABS: Partial Thromboplastin Time 22.8 sec (22.0-30.0); Prothrombin Time 11.4 sec (10.0-12.5)
[2024-02-20 23:02] LABS: NT-Pro-B-Type Natriuretic Pept 583 pg/mL
[2024-02-20] MEDS: CEPHALEXIN 500 MG CAP PO STA (23:44)
[2024-02-20] MEDS: CEPHALEXIN 500MG STARTER PACK 4 CAP BTL PO STA (23:44)
[2024-02-20 23:50] LABS: Appearance,Urine Cloudy (Clear); Bacteria,Urine Rare /hpf; Bilirubin,Urine Negative (Negative); Blood,Urine Negative (Negative); Color,Urine Colorless; Glucose,Urine (UA) Negative (Negative); Hyaline Casts,Urine 1 /lpf (0-2); Ketones,Urine Trace (Negative); Leukocyte Esterase,Urine Moderate (Negative); Mucus,Urine Rare /hpf; Nitrite,Urine Negative (Negative); Protein,Urine Trace (Negative); RBC,Urine 7 /hpf (0-5); Specific Gravity,Urine 1.018 (1.001-1.035); Squamous Epithelial Cell,Urine 9 /hpf (0-4); Urobilinogen,Urine <2.0 mg/dL (<2.0); WBC,Urine 3 /hpf (0-5)
[2024-02-21 00:07] VITALS: BP 149/69; PULSE 75
[2024-02-21 00:08] VITALS: RESP 17
== END 2024-02-20 23:51 | disposition home or self-care (01) ==
LOC: SUPCPDRO 21:13 → EC 21:13
DX: N39.0 Urinary tract infection, site not specified (principal)
CPT/HCPCS: 36415; 93005; 83880; 80053; 83605; 83690; 83735; 84100; 84484; 85025; 85610; 85730; 81001; 87040; 99285; 96365; 96375; J0696; J1885

== ENCOUNTER 2025-03-21 16:51 | Emergency (ER) | payer MEDICARE ==
[2025-03-21 17:29] VITALS: TEMP 98.3
[2025-03-21 17:30] LABS: Glucose,Whole Blood 201 mg/dL (70-110)
--- NOTE | 2025-03-21 17:58 | ED ---
Dizziness HPI - General Source: patient Mode of arrival: ambulatory Limitations: no limitations <Saige Granados - Last Filed: 03/21/25 17:57> - General Source: patient, RN notes reviewed, old records reviewed Mode of arrival: ambulatory Limitations: no limitations - History of Present Illness MD Complaint: dizziness, other (Elevated blood pressure) -: unknown History of Same: Yes History of Trauma: No Severity: mild Improves With: nothing Worsens With: nothing Associated Symptoms: denies other symptoms <Red Franco - Last Filed: 03/22/25 00:55> - General Chief Complaint: Dizziness Stated Complaint: near syncope Time Seen by Provider: 03/21/25 17:57 - History of Present Illness Initial Comments: 89-year-old female presenting for evaluation. Patient reports that around 4 PM she started to feel very hot and checked her blood pressure and noticed that it was in the 170s systolic. She reports that she has been sitting inside in the air conditioning all day. She reports that earlier when she went down her basement stairs she started to feel slightly dizzy when she got to the bottom but this quickly resolved. She was having a little bit of epigastric discomfort earlier today but thinks that this might have been from the pickle she ate at lunch. No chest pain or difficulty breathing. No vomiting. (Saige Granados) This is a 89 female to the ER patient presents today for evaluation of elevated blood pressures with some dizziness patient has not checked blood pressure in a long time and decided to take it this morning was feeling a little dizzy and lightheaded after being outside. Patient has mo complaints of dizziness here in the ER feels well, concern for blood pressure elevation (Red Franco) - Related Data Home Medications Medication Instructions Recorded Confirmed Aspirin EC [Ecotrin Low Dose] 81 mg PO DAILY 02/13/20 01/12/21 Biotin 5 mg PO DAILY 02/13/20 01/12/21 Cinnamon Bark [Cinnamon] 1,000 mg PO DAILY 02/13/20 01/12/21 Cranberry Fruit Concentrate [Azo 250 mg PO DAILY@1200 02/13/20 01/12/21 Cranberry] Cyanocobalamin (Vitamin B-12) 5,000 mcg PO DAILY 02/13/20 01/12/21 [Vitamin B-12] Magnesium 250 mg PO BID 02/13/20 01/12/21 Dunlap-3 Fatty Acids/Fish Oil [Fish 1 cap PO DAILY 02/13/20 01/12/21 Oil 1,000 mg Softgel] Pioglitazone [Actos] 45 mg PO DAILY 02/13/20 01/12/21 Ubidecarenone [Co Q-10] 400 mg PO DAILY@1200 02/13/20 01/12/21 metFORMIN HCL [Glucophage] 1,000 mg PO BID 02/13/20 01/12/21 Acarbose [Precose] 50 mg PO W/SUPPER 01/12/21 01/12/21 Atorvastatin [Lipitor] 20 mg PO HS 01/12/21 01/12/21 Cholecalciferol (Vitamin D3) 125 mcg PO DAILY 01/12/21 01/12/21 [Vitamin D3 (5000 Iu)] Lisinopril-Hctz 20-25 mg 1 tab PO DAILY 01/12/21 01/12/21 [Zestoretic 20-25] Methylsulfonylmethane [MSM] 900 mg PO DAILY 01/12/21 01/12/21 Montelukast Sodium [Singulair] 10 mg PO HS 01/12/21 01/12/21 amLODIPine [Norvasc] 5 mg PO HS 01/12/21 01/12/21 Previous Rx's Medication Instructions Recorded Cephalexin [Keflex] 500 mg PO Q6HR #20 cap 02/20/24 lisinopriL 40 mg PO DAILY #60 tab 03/21/25 Allergies Allergy/AdvReac Type Severity Reaction Status Date / Time No Known Allergies Allergy Verified 03/21/25 17:28 Review of Systems ROS Other: All systems not noted in ROS Statement are negative. <Saige Granados - Last Filed: 03/21/25 17:57> ROS Other: All systems not noted in ROS Statement are negative. <Red Franco - Last Filed: 03/22/25 00:55> ROS Statement: Those systems with pertinent positive or pertinent negative responses have been documented in the HPI. 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, covid positive 10/30/2020, History of Any Multi-Drug Resistant Organisms: None Reported Past Surgical History: Cholecystectomy, Hysterectomy Additional Past Surgical History / Comment(s): eye, Past Anesthesia/Blood Transfusion Reactions: No Reported Reaction Past Psychological History: No Psychological Hx Reported Smoking Status: Never smoker Past Alcohol Use History: None Reported Past Drug Use History: None Reported - Past Family History Sister(s) Family Medical History: Cancer <Saige Granados - Last Filed: 03/21/25 17:57> General Exam Limitations: no limitations <Saige Granados - Last Filed: 03/21/25 17:57> General appearance: alert, in no apparent distress Head exam: Present: atraumatic, normocephalic, normal inspection Eye exam: Present: normal appearance, PERRL, EOMI. Absent: scleral icterus, conjunctival injection, periorbital swelling ENT exam: Present: normal exam, mucous membranes moist Neck exam: Present: normal inspection. Absent: tenderness, meningismus, lymphadenopathy Respiratory exam: Present: normal lung sounds bilaterally. Absent: respiratory distress, wheezes, rales, rhonchi, stridor Cardiovascular Exam: Present: regular rate, normal rhythm, normal heart sounds. Absent: systolic murmur, diastolic murmur, rubs, gallop, clicks GI/Abdominal exam: Present: soft, normal bowel sounds. Absent: distended, tenderness, guarding, rebound, rigid Extremities exam: Present: normal inspection, full ROM, normal capillary refill. Absent: tenderness, pedal edema, joint swelling, calf tenderness Back exam: Present: normal inspection Neurological exam: Present: alert, oriented X3, CN II-XII intact Psychiatric exam: Present: normal affect, normal mood Skin exam: Present: warm, dry, intact, normal color. Absent: rash <Red Franco - Last Filed: 03/22/25 00:55> - General Exam Comments Initial Comments: Visual Physical Exam Vital signs reviewed General: Well-appearing, nontoxic, no acute distress. Head: Normocephalic, atraumatic Eyes: PERRLA, EOMI ENT: Airway patent Chest: Nonlabored breathing Skin: No visual rash, normal skin tone Neuro: Alert and oriented 3 Musculoskeletal: No gross abnormalities (Saige Granados) Course <Red Franco - Last Filed: 03/22/25 00:55> Vital Signs 03/21/25 03/21/25 03/21/25 17:26 22:13 23:02 Temperature 98.3 F Pulse Rate 68 72 66 Respiratory 20 18 18 Rate Blood Pressure 182/78 185/82 168/71 O2 Sat by Pulse 99 98 96 Oximetry 03/21/25 23:38 Temperature Pulse Rate 52 L Respiratory 18 Rate Blood Pressure 121/52 O2 Sat by Pulse 97 Oximetry - Reevaluation(s) Reevaluation #1: 03/22/25 00:54 Medical records reviewed (Red Franco) Reevaluation #2: 03/22/25 00:54 Patient symptoms unchanged 03/22/25 00:54 Patient remains without symptoms, no headache or chest pain Patient's blood pressures improved (Red Frnaco) Reevaluation #3: 03/22/25 00:55 Patient informed of results questions answered (Red Franco) Reevaluation #4: Was pt. sent in by a medical professional or institution (, PA, [facility], urgent care, hospital, or prison...) When possible be specific @ -no Did you speak to anyone other than the patient for history (EMS, parent, family, police, friend...)? What history was obtained from this source @ -no Did you review nursing and triage notes (agree or disagree)? Why? @ -agree Are old charts reviewed (outside hosp., previous admission, EMS record, old EKG, old radiological studies, urgent care reports/EKG's, prison records)? Report findings @ -yes Differential Diagnosis (chest pain, altered mental status, abdominal pain women, abdominal pain men, vaginal bleeding, weakness, fever, dyspnea, syncope, headache, dizziness, GI bleed, back pain, seizure, CVA, palpatations, mental health, musculoskeletal)? @ -prior EKG interpreted by me (3pts min.). @ -yes X-rays interpreted by me (1pt min.). @ -yes negative for acute disease CT interpreted by me (1pt min.). @ -no U/S interpreted by me (1pt. min.). @ -no What testing was considered but not performed or refused? (CT, X-rays, U/S, labs)? Why? @ -none What meds were considered but not given or refused? Why? @ -none Did you discuss the management of the patient with other professionals (zane faith ichristian Jaime, PA, [employer], lab, RT, psych nurse, social services analyst, announcer, teacher, textile technical officer, disease case manager rn)? Give summary @ -no Was smoking cessation discussed for >3mins.? @ -no Was critical care preformed (if so, how long)? @ -no Were there social determinants of health that impacted care today? How? (Homelessness, low income, unemployed, alcoholism, drug addiction, transportation, low edu. Level, literacy, decrease access to med. care, detention, rehab)? @ -none Was there de-escalation of care discussed even if they declined (Discuss DNR or withdrawal of care, Hospice)? DNR status @ -no What co-morbidities impacted this encounter? (DM, HTN, Smoking, COPD, CAD, Cancer, CVA, ARF, Chemo, Hep., AIDS, mental health diagnosis, sleep apnea, morbid obesity)? @ -none Was patient admitted / discharged? Hospital course, mention meds given and route, prescriptions, significant lab abnormalities, going to OR and other pertinent info. @ - Undiagnosed new problem with uncertain prognosis? @ -no Drug Therapy requiring intensive monitoring for toxicity (Heparin, Nitro, Insulin, Cardizem)? @ -no Were any procedures done? @ -no Diagnosis/symptom? @ - Acute, or Chronic, or Acute on Chronic? @ -Acute Uncomplicated (without systemic symptoms) or Complicated (systemic symptoms)? @ -Complicated Side effects of treatment? @ -no Exacerbation, Progression, or Severe Exacerbation? @ -exacerbation Poses a threat to life or bodily function? How? (Chest pain, [place], NH, pneumonia, PE, COPD, DKA, ARF, appy, cholecystitis, CVA, Diverticulitis, Homicidal, Suicidal, threat to staff... and all critical care pts) @ -yes (Red Franco) Reevaluation #5: Differential Dizziness: Benign paroxysmal positional Vertigo, Meniere's disease, otitis media, acoustic neuroma, vertebrobasilar insufficiency, cerebellar stroke, encephalitis, hypovolemic, arrhythmia, coronary artery syndrome, anemia, this is not meant to be an all-inclusive list (Red Franco) EKG Findings - EKG Comments: EKG Findings:: EKG is sinus 70 NJ 215 QRS 161 QTc 460 - EKG Results: EKG: interpreted by ERMD <Red Franco - Last Filed: 03/22/25 00:55> Medical Decision Making <Saige Granados - Last Filed: 03/21/25 17:57> - Lab Data Result diagrams: 03/21/25 18:09 03/21/25 18:09 - EKG Data -: EKG Interpreted by Me - Radiology Data Radiology results: report reviewed (Chest x-ray is negative for acute disease), image reviewed <Red Franco - Last Filed: 03/22/25 00:55> - Medical Decision Making I performed the quick note portion of this visit, electronically signed Saige Granados PA-C (Saige Granados) 89 female to ER for evaluation of dizziness and hypertension. Patient's blood pressure is well-controlled currently we will increase home meds and patient can be discharged (Red Franco) - Lab Data Lab Results 03/21/25 03/21/25 03/21/25 Range/Units 17:30 18:09 18:09 WBC 5.01 (4.50-10.00) 10*3/uL RBC 4.32 (4.10-5.20) 10*6/uL Hgb 12.8 (12.0-15.0) g/dL Hct 38.3 (37.2-46.3) % MCV 88.7 (80.0-97.0) fL MCH 29.6 (27.0-32.0) pg MCHC 33.4 (32.0-37.0) g/dL Plt Count 336 (140-440) 10*3/uL MPV 9.6 (9.5-12.2) fL Immature Gran % (Auto) 0.2 % Neutrophils % 58.9 % Lymphocytes % 26.9 % Monocytes % 11.0 % Eosinophils % 2.4 % Basophils % 0.6 % Immature Gran # 0.01 (0.00-0.04) 10*3/uL Neutrophils # 2.95 (1.80-7.70) 10*3/uL Lymphocytes # 1.35 (0.90-5.00) 10*3/uL Monocytes # 0.55 (0.20-1.00) 10*3/uL Eosinophils # 0.12 (0.04-0.35) 10*3/uL Basophils # 0.03 (0.00-0.10) 10*3/uL Sodium 136 L (137-145) mmol/L Potassium 4.4 (3.5-5.1) mmol/L Chloride 99 (98-107) mmol/L Carbon Dioxide 23 (22-30) mmol/L Anion Gap 14 mmol/L BUN 19 H (7-17) mg/dL Creatinine 0.82 (0.52-1.04) mg/dL Est GFR (CKD-EPI)AfAm 74 (>60 ml/min/1.73 sqM) Est GFR (CKD-EPI)NonAf 64 (>60 ml/min/1.73 sqM) Glucose 185 H (74-99) mg/dL POC Glucose (mg/dL) 201 H (70-110) mg/dL POC Glu Vein Pumper ID Juan Orozco Plasma Lactic Acid Ren (0.7-2.0) mmol/L Calcium 11.2 H (8.4-10.2) mg/dL Total Bilirubin 0.4 (0.2-1.3) mg/dL AST 24 (14-36) U/L ALT 18 (4-34) U/L Alkaline Phosphatase 78 (38-126) U/L Troponin I (0.000-0.034) ng/mL Total Protein 8.3 H (6.3-8.2) g/dL Albumin 5.1 H (3.5-5.0) g/dL 03/21/25 03/21/25 Range/Units 18:09 21:42 WBC (4.50-10.00) 10*3/uL RBC (4.10-5.20) 10*6/uL Hgb (12.0-15.0) g/dL Hct (37.2-46.3) % MCV (80.0-97.0) fL MCH (27.0-32.0) pg MCHC (32.0-37.0) g/dL Plt Count (140-440) 10*3/uL MPV (9.5-12.2) fL Immature Gran % (Auto) % Neutrophils % % Lymphocytes % % Monocytes % % Eosinophils % % Basophils % % Immature Gran # (0.00-0.04) 10*3/uL Neutrophils # (1.80-7.70) 10*3/uL Lymphocytes # (0.90-5.00) 10*3/uL Monocytes # (0.20-1.00) 10*3/uL Eosinophils # (0.04-0.35) 10*3/uL Basophils # (0.00-0.10) 10*3/uL Sodium (137-145) mmol/L Potassium (3.5-5.1) mmol/L Chloride (98-107) mmol/L Carbon Dioxide (22-30) mmol/L Anion Gap mmol/L BUN (7-17) mg/dL Creatinine (0.52-1.04) mg/dL Est GFR (CKD-EPI)AfAm (>60 ml/min/1.73 sqM) Est GFR (CKD-EPI)NonAf (>60 ml/min/1.73 sqM) Glucose (74-99) mg/dL POC Glucose (mg/dL) (70-110) mg/dL POC Glu Vein Pumper ID Plasma Lactic Acid Ren 1.0 (0.7-2.0) mmol/L Calcium (8.4-10.2) mg/dL Total Bilirubin (0.2-1.3) mg/dL AST (14-36) U/L ALT (4-34) U/L Alkaline Phosphatase (38-126) U/L Troponin I <0.012 (0.000-0.034) ng/mL Total Protein (6.3-8.2) g/dL Albumin (3.5-5.0) g/dL Disposition <Saige Granados - Last Filed: 03/21/25 17:57> Is patient prescribed a controlled substance at d/c from ED?: No Time of Disposition: 22:30 <Red Franco - Last Filed: 03/22/25 00:55> Clinical Impression: Dizziness, Hypertension Disposition: HOME SELF-CARE Condition: Good Instructions (If sedation given, give patient instructions): Hypertension (ED) Prescriptions: lisinopriL 40 mg PO DAILY #60 tab Referrals: Janelle Morales DO [Primary Care Provider] - 1-2 days
[2025-03-21 18:14] LABS: Basophils # (A) 0.03 10*3/uL (0.00-0.10); Basophils % (A) 0.6 %; Eosinophils # (A) 0.12 10*3/uL (0.04-0.35); Eosinophils % (A) 2.4 %; HCT 38.3 % (37.2-46.3); HGB 12.8 g/dL (12.0-15.0); Lymphocytes # (A) 1.35 10*3/uL (0.90-5.00); Lymphocytes % (A) 26.9 %; MCH 29.6 pg (27.0-32.0); MCHC 33.4 g/dL (32.0-37.0); MCV 88.7 fL (80.0-97.0); Mean Platelet Volume 9.6 fL (9.5-12.2); Monocytes # (A) 0.55 10*3/uL (0.20-1.00); Neutrophils # (A) 2.95 10*3/uL (1.80-7.70); Neutrophils % (A) 58.9 %; Platelet Count 336 10*3/uL (140-440); RBC 4.32 10*6/uL (4.10-5.20); WBC 5.01 10*3/uL (4.50-10.00)
[2025-03-21 18:27] LABS: ALT 18 U/L (4-34); AST 24 U/L (14-36); African American GFR (CKD) 74 (>60 ml/min/1.73 sqM); Albumin 5.1 g/dL (3.5-5.0); Alkaline Phosphatase 78 U/L (38-126); Anion Gap 14 mmol/L; Blood Urea Nitrogen 19 mg/dL (7-17); Calcium 11.2 mg/dL (8.4-10.2); Carbon Dioxide 23 mmol/L (22-30); Chloride 99 mmol/L (98-107); Glucose 185 mg/dL (74-99); Non-African American GFR(CKD) 64 (>60 ml/min/1.73 sqM); Potassium 4.4 mmol/L (3.5-5.1); Sodium 136 mmol/L (137-145); Total Bilirubin 0.4 mg/dL (0.2-1.3); Total Protein 8.3 g/dL (6.3-8.2)
--- NOTE | 2025-03-21 18:38 | XR ---
EXAMINATION TYPE: XR chest 2V DATE OF EXAM: 03/21/2025 6:18 PM COMPARISON: 01/12/2021 CLINICAL INDICATION: Female, 89 years old with history of dizzy, history of chest pain TECHNIQUE: XR chest 2V view(s) obtained. FINDINGS: The heart size is slightly prominent. Appearance is stable.. The pulmonary vasculature is normal. The lungs are clear. The suspected chronic right diaphragmatic calcification appearance is stable IMPRESSION: 1. No acute pulmonary process. 2. Mild cardiomegaly, stable [facility] Noah Johns, , 03/21/2025 6:36 PM
[2025-03-21 22:14] VITALS: RESP 18
[2025-03-21] MEDS: LABETALOL 5 MG/ML VIAL MDV IVP STA (23:04)
[2025-03-21] MEDS: lisinopriL 20 MG TAB PO STA (23:04)
[2025-03-21 23:39] VITALS: BP 121/52; PULSE 52
== END 2025-03-21 23:42 | disposition home or self-care (01) ==
LOC: EC 16:51
DX: I11.9 Hypertensive heart disease without heart failure (principal); I25.10 Atherosclerotic heart disease of native coronary artery without angina pectoris
CPT/HCPCS: 36415; 93005; 80053; 83605; 84484; 85025; 71046; 99284; 96374; J1920